=== PATIENT | male | born 1980 | race Caucasian/White ===

== ENCOUNTER 2024-08-03 17:36 | Inpatient (IN) | payer OTHER ==
[2024-08-03] MEDS ORDERED: LORazepam 0.5 MG TAB PO PRN (18:16)
[2024-08-03] MEDS ORDERED: LORazepam 1 MG TAB PO PRN ×2 (18:16)
--- NOTE | 2024-08-03 18:30 | ED ---
Alcohol HPI - General Chief Complaint: Recheck/Abnormal Lab/Rx Stated Complaint: high blood pressure abd pain Time Seen by Provider: 08/03/24 18:15 Source: patient, RN notes reviewed, old records reviewed Mode of arrival: ambulatory Limitations: no limitations - History of Present Illness Initial Comments: This is a 44-year-old male to the ER for evaluation patient presents today for evaluation of multiple complaints abdominal pain nausea vomiting decreased appetite, patient is attempting to quit drinking going through withdrawal, patient has history of severe alcoholism with multiple rehabilitation efforts. Without success. MD Complaint: alcohol withdrawal (4) Last Drink: unknown -: days(s) (4) Previous Visits for Alcohol Intoxication?: Yes Recent Trauma: Yes Associated Symptoms: nausea, abdominal pain Treatments Prior to Arrival: none Chronic Alcohol Use: Yes - Related Data Previous Rx's Medication Instructions Recorded Clotrimazole Cream [Lotrimin Cream] 1 applic TOPICAL BID 14 Days #1 08/08/24 cream Folic Acid 1 mg PO DAILY 14 Days #14 tab 08/08/24 Lactulose [Cephulac] 30 gm PO TID 14 Days #1890 ml 08/08/24 Multivitamins, Thera [Multivitamin 1 each PO DAILY 14 Days #14 tab 08/08/24 (formulary)] Thiamine [Vitamin B-1] 100 mg PO DAILY 14 Days #14 tab 08/08/24 amLODIPine [Norvasc] 10 mg PO DAILY 14 Days #14 tab 08/08/24 guaiFENesin-DM 100-10MG/5ML 10 ml PO Q6HR PRN 14 Days #560 ml 08/08/24 [Robitussin DM] Allergies Allergy/AdvReac Type Severity Reaction Status Date / Time No Known Allergies Allergy Verified 08/04/24 09:12 Review of Systems ROS Statement: Those systems with pertinent positive or pertinent negative responses have been documented in the HPI. ROS Other: All systems not noted in ROS Statement are negative. Past Medical History Past Medical History: Hypertension History of Any Multi-Drug Resistant Organisms: None Reported Past Surgical History: No Surgical Hx Reported Past Psychological History: Depression Smoking Status: Never smoker Past Alcohol Use History: Abuse, Daily Past Drug Use History: None Reported General Exam Limitations: no limitations General appearance: alert, in no apparent distress, anxious Head exam: Present: atraumatic, normocephalic, normal inspection Eye exam: Present: normal appearance, PERRL, EOMI. Absent: scleral icterus, conjunctival injection, periorbital swelling ENT exam: Present: normal exam, mucous membranes moist Neck exam: Present: normal inspection. Absent: tenderness, meningismus, lymphadenopathy Respiratory exam: Present: normal lung sounds bilaterally. Absent: respiratory distress, wheezes, rales, rhonchi, stridor Cardiovascular Exam: Present: normal rhythm, tachycardia, normal heart sounds. Absent: systolic murmur, diastolic murmur, rubs, gallop, clicks GI/Abdominal exam: Present: soft, normal bowel sounds. Absent: distended, tenderness, guarding, rebound, rigid Extremities exam: Present: normal inspection, full ROM, normal capillary refill. Absent: tenderness, pedal edema, joint swelling, calf tenderness Back exam: Present: normal inspection Neurological exam: Present: alert, oriented X3, CN II-XII intact Psychiatric exam: Present: normal affect, normal mood Skin exam: Present: warm, dry, intact, normal color. Absent: rash Course Vital Signs 08/03/24 08/03/24 08/03/24 17:37 20:00 21:00 Temperature 99.3 F 98.1 F Pulse Rate 139 H 115 H 123 H Respiratory 18 22 22 Rate Blood Pressure 148/98 180/132 165/120 O2 Sat by Pulse 94 L 96 95 Oximetry 08/03/24 08/04/24 08/04/24 22:00 00:00 02:00 Temperature Pulse Rate 110 H 111 H 109 H Respiratory 22 22 20 Rate Blood Pressure 156/106 148/105 154/104 O2 Sat by Pulse 98 96 98 Oximetry 08/04/24 08/04/24 08/04/24 04:00 06:00 07:49 Temperature 98 F Pulse Rate 105 H 105 H 109 H Respiratory 20 20 18 Rate Blood Pressure 151/101 133/99 134/93 O2 Sat by Pulse 98 100 96 Oximetry 08/04/24 08/04/24 08/04/24 11:03 12:35 14:44 Temperature 99.6 F Pulse Rate 107 H 105 H 110 H Respiratory 18 18 16 Rate Blood Pressure 160/116 162/121 156/113 O2 Sat by Pulse 95 95 98 Oximetry 08/04/24 08/04/24 08/04/24 15:21 18:13 18:27 Temperature 98.9 F 99.1 F Pulse Rate 105 H 114 H Respiratory 16 17 Rate Blood Pressure 161/110 163/118 144/95 O2 Sat by Pulse 96 96 Oximetry 08/04/24 22:50 Temperature Pulse Rate 118 H Respiratory 18 Rate Blood Pressure 151/109 O2 Sat by Pulse 97 Oximetry - Reevaluation(s) Reevaluation #1: 08/03/24 18:49 Medical records reviewed No prior ER visits on questioning patient is Kaleigh originally from [place] Reevaluation #2: 08/03/24 21:59 Patient has no real change in symptoms Reevaluation #3: 08/03/24 21:59 Patient informed of results questions answered Reevaluation #4: Was pt. sent in by a medical professional or institution (, [facility], PHARMACY ASSISTANT, urgent care, hospital, or halfway...) When possible be specific @ -no Did you speak to anyone other than the patient for history (EMS, parent, family, police, friend...)? What history was obtained from this source @ -no Did you review nursing and triage notes (agree or disagree)? Why? @ -agree Are old charts reviewed (outside hosp., previous admission, EMS record, old EKG, old radiological studies, urgent care reports/EKG's, halfway records)? Report findings @ -yes Differential Diagnosis (chest pain, altered mental status, abdominal pain women, abdominal pain men, vaginal bleeding, weakness, fever, dyspnea, syncope, headache, dizziness, GI bleed, back pain, seizure, CVA, palpatations, mental health, musculoskeletal)? @ -prior EKG interpreted by me (3pts min.). @ -yes X-rays interpreted by me (1pt min.). @ -no CT interpreted by me (1pt min.). @ -no U/S interpreted by me (1pt. min.). @ -no What testing was considered but not performed or refused? (CT, X-rays, U/S, labs)? Why? @ -none What meds were considered but not given or refused? Why? @ -none Did you discuss the management of the patient with other professionals (professionals i.e. [facility], PHARMACY ASSISTANT, lab, RT, psych nurse, social services aide, supervisor [employer], teacher, chief administrative officer, outsole caser)? Give summary @ -no Was smoking cessation discussed for >3mins.? @ -no Was critical care preformed (if so, how long)? @ -yes31 Were there social determinants of health that impacted care today? How? (Homelessness, low income, unemployed, alcoholism, drug addiction, transportation, low edu. Level, literacy, decrease access to med. care, residential, rehab)? @ -none Was there de-escalation of care discussed even if they declined (Discuss DNR or withdrawal of care, Hospice)? DNR status @ -no What co-morbidities impacted this encounter? (DM, HTN, Smoking, COPD, CAD, Cancer, CVA, ARF, Chemo, Hep., AIDS, mental health diagnosis, sleep apnea, morbid obesity)? @ -none Was patient admitted / discharged? Hospital course, mention meds given and route, prescriptions, significant lab abnormalities, going to OR and other pertinent info. @ - 44 male will be admitted for acute alcohol withdrawal complicated by multiple electrolyte derangements, low magnesium low potassium low Phos low calcium, protein calorie malnutrition severe malnutrition dehydration from alcoholic hepatitis and cirrhosis with elevated bilirubin Admitted Undiagnosed new problem with uncertain prognosis? @ -no Drug Therapy requiring intensive monitoring for toxicity (Heparin, Nitro, Insulin, Cardizem)? @ -no Were any procedures done? @ -no Diagnosis/symptom? @ -multiple electrolyte abnormalities with alcohol withdrawal Acute, or Chronic, or Acute on Chronic? @ -Acute Uncomplicated (without systemic symptoms) or Complicated (systemic symptoms)? @ -Complicated Side effects of treatment? @ -no Exacerbation, Progression, or Severe Exacerbation? @ -exacerbation Poses a threat to life or bodily function? How? (Chest pain, [place], HI, pneumonia, PE, COPD, DKA, ARF, appy, cholecystitis, CVA, Diverticulitis, Homicidal, Suicidal, threat to staff... and all critical care pts) @ -yes significant electrolyte abnormalities Reevaluation #5: Differential Abdominal Pain Men: Appendicitis, cholecystitis, diverticulosis, ischemic bowel, pancreatitis, hepatitis, UTI, gastroenteritis, AAA, incarcerated hernia, bowel obstruction, constipation, inflammatory bowel, hepatitis, peptic ulcer disease, splenic infarction, perforated viscus, testicular torsion, this is not meant to be an all-inclusive list - Consultations Consultation #1: Spoke with ASIF ferreiraay to admit this patient Medical Decision Making - Medical Decision Making 44 male will be admitted for acute alcohol withdrawal complicated by multiple electrolyte derangements, low magnesium low potassium low Phos low calcium, protein calorie malnutrition severe malnutrition dehydration from alcoholic hepatitis and cirrhosis with elevated bilirubin - Lab Data Result diagrams: 08/05/24 04:03 08/08/24 05:21 Lab Results 08/03/24 08/03/24 08/03/24 Range/Units 18:34 18:34 18:34 WBC 3.9 (3.8-10.6) k/uL RBC 4.40 (4.30-5.90) m/uL Hgb 16.2 (13.0-17.5) gm/dL Hct 49.3 (39.0-53.0) % MCV 112.0 H (80.0-100.0) fL MCH 36.7 H (25.0-35.0) pg MCHC 32.7 (31.0-37.0) g/dL RDW 13.5 (11.5-15.5) % Plt Count 71 L (150-450) k/uL MPV 9.9 Neutrophils % 70 % Lymphocytes % 16 % Monocytes % 10 % Eosinophils % 0 % Basophils % 1 % Neutrophils # 2.7 (1.3-7.7) k/uL Lymphocytes # 0.6 L (1.0-4.8) k/uL Monocytes # 0.4 (0-1.0) k/uL Eosinophils # 0.0 (0-0.7) k/uL Basophils # 0.0 (0-0.2) k/uL Manual Slide Review Performed Macrocytosis Marked A Target Cells Present Stomatocytes Present PT 18.9 H (10.0-12.5) sec INR 1.9 H (<1.2) APTT 25.6 (22.0-30.0) sec D-Dimer 1.10 H (<0.60) mg/L FEU Sodium 134 L (137-145) mmol/L Potassium 2.8 L (3.5-5.1) mmol/L Chloride 91 L (98-107) mmol/L Carbon Dioxide 29 (22-30) mmol/L Anion Gap 14 mmol/L BUN 5 L (9-20) mg/dL Creatinine 0.68 (0.66-1.25) mg/dL Est GFR (CKD-EPI)AfAm >90 (>60 ml/min/1.73 sqM) Est GFR (CKD-EPI)NonAf >90 (>60 ml/min/1.73 sqM) Glucose 111 H (74-99) mg/dL Lactic Ac Sepsis Rflx Plasma Lactic Acid Elias (0.7-2.0) mmol/L Calcium 8.1 L (8.4-10.2) mg/dL Phosphorus 2.0 L (2.5-4.5) mg/dL Magnesium 0.6 L* (1.6-2.3) mg/dL Total Bilirubin 12.6 H (0.2-1.3) mg/dL AST 426 H (17-59) U/L ALT 96 H (4-49) U/L Alkaline Phosphatase 151 H (38-126) U/L Troponin I (0.000-0.034) ng/mL NT-Pro-B Natriuret Pep 44 pg/mL Total Protein 8.3 H (6.3-8.2) g/dL Albumin 3.9 (3.5-5.0) g/dL Lipase 230 (23-300) U/L Urine Color Urine Appearance (Clear) Urine pH (5.0-8.0) Ur Specific [place] (1.001-1.035) Urine Protein (Negative) Urine Glucose (UA) (Negative) Urine Ketones (Negative) Urine Blood (Negative) Urine Nitrite (Negative) Urine Bilirubin (Negative) Urine Urobilinogen (<2.0) mg/dL Ur Leukocyte Esterase (Negative) Urine RBC (0-5) /hpf Urine WBC (0-5) /hpf Ur Squamous Epith Cells (0-4) /hpf Hyaline Casts (0-2) /lpf Urine Mucus (None) /hpf Serum Alcohol <10 mg/dL 08/03/24 08/03/24 08/03/24 Range/Units 18:34 18:34 19:14 WBC (3.8-10.6) k/uL RBC (4.30-5.90) m/uL Hgb (13.0-17.5) gm/dL Hct (39.0-53.0) % MCV (80.0-100.0) fL MCH (25.0-35.0) pg MCHC (31.0-37.0) g/dL RDW (11.5-15.5) % Plt Count (150-450) k/uL MPV Neutrophils % % Lymphocytes % % Monocytes % % Eosinophils % % Basophils % % Neutrophils # (1.3-7.7) k/uL Lymphocytes # (1.0-4.8) k/uL Monocytes # (0-1.0) k/uL Eosinophils # (0-0.7) k/uL Basophils # (0-0.2) k/uL Manual Slide Review Macrocytosis Target Cells Stomatocytes PT (10.0-12.5) sec INR (<1.2) APTT (22.0-30.0) sec D-Dimer (<0.60) mg/L FEU Sodium (137-145) mmol/L Potassium (3.5-5.1) mmol/L Chloride (98-107) mmol/L Carbon Dioxide (22-30) mmol/L Anion Gap mmol/L BUN (9-20) mg/dL Creatinine (0.66-1.25) mg/dL Est GFR (CKD-EPI)AfAm (>60 ml/min/1.73 sqM) Est GFR (CKD-EPI)NonAf (>60 ml/min/1.73 sqM) Glucose (74-99) mg/dL Lactic Ac Sepsis Rflx Y Plasma Lactic Acid Elias 2.1 H* (0.7-2.0) mmol/L Calcium (8.4-10.2) mg/dL Phosphorus (2.5-4.5) mg/dL Magnesium (1.6-2.3) mg/dL Total Bilirubin (0.2-1.3) mg/dL AST (17-59) U/L ALT (4-49) U/L Alkaline Phosphatase (38-126) U/L Troponin I <0.012 (0.000-0.034) ng/mL NT-Pro-B Natriuret Pep pg/mL Total Protein (6.3-8.2) g/dL Albumin (3.5-5.0) g/dL Lipase (23-300) U/L Urine Color Urine Appearance (Clear) Urine pH (5.0-8.0) Ur Specific [place] (1.001-1.035) Urine Protein (Negative) Urine Glucose (UA) (Negative) Urine Ketones (Negative) Urine Blood (Negative) Urine Nitrite (Negative) Urine Bilirubin (Negative) Urine Urobilinogen (<2.0) mg/dL Ur Leukocyte Esterase (Negative) Urine RBC (0-5) /hpf Urine WBC (0-5) /hpf Ur Squamous Epith Cells (0-4) /hpf Hyaline Casts (0-2) /lpf Urine Mucus (None) /hpf Serum Alcohol mg/dL 08/03/24 08/03/24 Range/Units 19:59 21:29 WBC (3.8-10.6) k/uL RBC (4.30-5.90) m/uL Hgb (13.0-17.5) gm/dL Hct (39.0-53.0) % MCV (80.0-100.0) fL MCH (25.0-35.0) pg MCHC (31.0-37.0) g/dL RDW (11.5-15.5) % Plt Count (150-450) k/uL MPV Neutrophils % % Lymphocytes % % Monocytes % % Eosinophils % % Basophils % % Neutrophils # (1.3-7.7) k/uL Lymphocytes # (1.0-4.8) k/uL Monocytes # (0-1.0) k/uL Eosinophils # (0-0.7) k/uL Basophils # (0-0.2) k/uL Manual Slide Review Macrocytosis Target Cells Stomatocytes PT (10.0-12.5) sec INR (<1.2) APTT (22.0-30.0) sec D-Dimer (<0.60) mg/L FEU Sodium (137-145) mmol/L Potassium (3.5-5.1) mmol/L Chloride (98-107) mmol/L Carbon Dioxide (22-30) mmol/L Anion Gap mmol/L BUN (9-20) mg/dL Creatinine (0.66-1.25) mg/dL Est GFR (CKD-EPI)AfAm (>60 ml/min/1.73 sqM) Est GFR (CKD-EPI)NonAf (>60 ml/min/1.73 sqM) Glucose (74-99) mg/dL Lactic Ac Sepsis Rflx Plasma Lactic Acid Elias 1.4 (0.7-2.0) mmol/L Calcium (8.4-10.2) mg/dL Phosphorus (2.5-4.5) mg/dL Magnesium (1.6-2.3) mg/dL Total Bilirubin (0.2-1.3) mg/dL AST (17-59) U/L ALT (4-49) U/L Alkaline Phosphatase (38-126) U/L Troponin I (0.000-0.034) ng/mL NT-Pro-B Natriuret Pep pg/mL Total Protein (6.3-8.2) g/dL Albumin (3.5-5.0) g/dL Lipase (23-300) U/L Urine Color [place] Urine Appearance Clear (Clear) Urine pH 8.0 (5.0-8.0) Ur Specific [place] 1.012 (1.001-1.035) Urine Protein 2+ H (Negative) Urine Glucose (UA) Negative (Negative) Urine Ketones 1+ H (Negative) Urine Blood Trace H (Negative) Urine Nitrite Negative (Negative) Urine Bilirubin 3+ H (Negative) Urine Urobilinogen 2.0 (<2.0) mg/dL Ur Leukocyte Esterase Negative (Negative) Urine RBC 3 (0-5) /hpf Urine WBC 7 H (0-5) /hpf Ur Squamous Epith Cells <1 (0-4) /hpf Hyaline Casts 14 H (0-2) /lpf Urine Mucus Moderate H (None) /hpf Serum Alcohol mg/dL - EKG Data -: EKG Interpreted by Me (EKG is sinus tachycardia 135 CA 139 QRS 93 QTc 410) - Radiology Data Radiology results: report reviewed (CT angio chest abdomen pelvis negative for acute disease), image reviewed Critical Care Time Critical Care Time: Yes Total Critical Care Time: 31 Disposition Clinical Impression: Alcohol withdrawal, Acute alcoholic hepatitis, Hyperbilirubinemia, Hypomagnesemia, Hypokalemia Disposition: ADMITTED IP TO THIS HOSP Condition: Stable Is patient prescribed a controlled substance at d/c from ED?: No Time of Disposition: 21:20
[2024-08-03] MEDS: LORazepam 2 MG/ML INJ IV STA (18:33)
[2024-08-03] MEDS: ONDANSETRON 4 MG/2 ML VIAL IVP STA (18:37)
[2024-08-03] MEDS: PANTOPRAZOLE 40 MG/10 ML VIAL IVP STA (18:40)
[2024-08-03] MEDS: SODIUM CHLORIDE 0.9% 500 ML 500 ML IV STA (18:41)
[2024-08-03] MEDS: SODIUM CHLORIDE 0.9% 1,000 ML IV STA ×2 (18:41)
[2024-08-03 18:45] LABS: Basophils % (A) 1 %; Eosinophils % (A) 0 %; HCT 49.3 % (39.0-53.0); HGB 16.2 gm/dL (13.0-17.5); Lymphocytes # (A) 0.6 k/uL (1.0-4.8); Lymphocytes % (A) 16 %; MCH 36.7 pg (25.0-35.0); MCHC 32.7 g/dL (31.0-37.0); Macrocytosis Marked; Mean Platelet Volume 9.9; Monocytes # (A) 0.4 k/uL (0-1.0); Monocytes % (A) 10 %; Neutrophils # (A) 2.7 k/uL (1.3-7.7); Neutrophils % (A) 70 %; RDW 13.5 % (11.5-15.5); WBC 3.9 k/uL (3.8-10.6)
[2024-08-03 18:58] LABS: ALT 96 U/L (4-49); AST 426 U/L (17-59); African American GFR (CKD) >90 (>60 ml/min/1.73 sqM); Albumin 3.9 g/dL (3.5-5.0); Alcohol <10 mg/dL; Alkaline Phosphatase 151 U/L (38-126); Anion Gap 14 mmol/L; Blood Urea Nitrogen 5 mg/dL (9-20); Calcium 8.1 mg/dL (8.4-10.2); Carbon Dioxide 29 mmol/L (22-30); Chloride 91 mmol/L (98-107); Glucose 111 mg/dL (74-99); Lipase 230 U/L (23-300); Non-African American GFR(CKD) >90 (>60 ml/min/1.73 sqM); Potassium 2.8 mmol/L (3.5-5.1); Sodium 134 mmol/L (137-145); Total Bilirubin 12.6 mg/dL (0.2-1.3); Total Protein 8.3 g/dL (6.3-8.2)
[2024-08-03 19:06] LABS: NT-Pro-B-Type Natriuretic Pept 44 pg/mL
[2024-08-03 19:07] LABS: INR 1.9 (<1.2); Partial Thromboplastin Time 25.6 sec (22.0-30.0); Prothrombin Time 18.9 sec (10.0-12.5)
[2024-08-03 19:13] LABS: Magnesium 0.6 mg/dL (1.6-2.3)
[2024-08-03 19:23] LABS: Stomatocytes Present; Target Cells Present
[2024-08-03 19:25] LABS: Platelet Count 71 k/uL (150-450)
--- NOTE | 2024-08-03 20:18 | CT ---
EXAMINATION TYPE: CT angio chest DATE OF EXAM: 08/03/2024 8:10 PM COMPARISON: None. CLINICAL INDICATION: Male, 44 years old with history of pain; Tachycardia, cough and congestion TECHNIQUE/CONTRAST: CTA scan of the thorax is performed with IV Contrast, patient injected with 100 mL of Isovue 370, MIP images are created and reviewed these are created on a separate workstation.. CT DLP: Combined 2007.5 mGycm, Automated exposure control for dose reduction was used. FINDINGS: Pulmonary Artery: There is no evidence for a filling defect within the pulmonary vasculature to sugge st acute pulmonary embolism. The pulmonary artery is of normal size. Lungs/Pleura: No evidence of focal consolidation, pleural effusion or pneumothorax. Airway: Large airways are patent. Heart: Heart is within normal limits for size. Coronary artery calcifications. Vasculature: No evidence of aortic aneurysm. Mediastinum: No gross evidence of adenopathy. Musculoskeletal: No acute osseous abnormalities Soft Tissues/lymph nodes: Unremarkable. Lower neck: No significant findings. Upper Abdomen: No significant acute findings. Severe hepatic steatosis. Gallbladder wall thickening/e kevin and mild pericholecystic fluid partially visualized. IMPRESSION: No evidence of acute pulmonary embolism or acute pulmonary pathology. [facility], , 08/03/2024 8:15 PM
--- NOTE | 2024-08-03 20:22 | CT ---
EXAMINATION TYPE: CT abdomen pelvis w con DATE OF EXAM: 08/03/2024 8:14 PM COMPARISON: CT abdomen pelvis most recent from CLINICAL INDICATION: Male, 44 years old with history of pain; Tachycardia, Fatigue, Daily Alcohol dri nker- last drink x 3 days ago TECHNIQUE: Axial CT abdomen pelvis w con;Sagittal and coronal reformats were created on a separate w orkstation. Contrast used:100 mL of Isovue 370 with IV Contrast, (none if empty) Oral contrast used: without Oral Contrast (none if empty) CT DLP: combined 2007.5 mGycm, Automated exposure control for dose reduction was used. FINDINGS: LOWER CHEST: Unremarkable ABDOMEN LIVER: Severe hepatic steatosis. GALLBLADDER AND BILE DUCTS: Nonspecific abnormal thickening/edema and adjacent pericholecystic fluid. PANCREAS: Unremarkable. SPLEEN: Unremarkable. ADRENAL GLANDS: Unremarkable. KIDNEYS AND URETERS: No evidence of hydronephrosis or renal calculus. The ureters are unremarkable. PELVIS BLADDER: No evidence for wall thickening or mass given limitations of exam. REPRODUCTIVE: Unremarkable. ABDOMEN & PELVIS STOMACH AND BOWEL: Stomach and duodenum are unremarkable. No evidence of bowel obstruction. Nonspecif ic mild wall thickening of the cecum and ascending colon, consider correlation with colonoscopy when clinically indicated. PERITONEUM/RETROPERITONEUM: No evidence of pneumoperitoneum or free fluid. VASCULATURE: No evidence of aortic aneurysm. MUSCULOSKELETAL: No acute osseous abnormalities LYMPH NODES: No gross evidence for lymphadenopathy. SOFT TISSUE/ABDOMINAL WALL: Small fat-containing right inguinal hernia. IMPRESSION: 1. Gallbladder wall thickening/edema and mild pericholecystic fluid without CT evidence of cholelith iasis. Consider further evaluation with right upper quadrant ultrasound and/or nuclear medicine HIDA scan if there is underlying concern for acute cholecystitis. 2. Severe hepatic steatosis. [facility], , 08/03/2024 8:20 PM
[2024-08-03 20:32] LABS: Appearance,Urine Clear (Clear); Bilirubin,Urine 3+ (Negative); Blood,Urine Trace (Negative); Color,Urine Orange; Glucose,Urine (UA) Negative (Negative); Hyaline Casts,Urine 14 /lpf (0-2); Ketones,Urine 1+ (Negative); Leukocyte Esterase,Urine Negative (Negative); Mucus,Urine Moderate /hpf; Nitrite,Urine Negative (Negative); Protein,Urine 2+ (Negative); RBC,Urine 3 /hpf (0-5); Specific Gravity,Urine 1.012 (1.001-1.035); Squamous Epithelial Cell,Urine <1 /hpf (0-4); WBC,Urine 7 /hpf (0-5)
[2024-08-03] MEDS: cloNIDine 0.3 MG/24HR PATCH TRANSDERM STA (20:52)
[2024-08-03] MEDS: POTASSIUM BICARBONATE/CIT AC 20 MEQ TABLET.EFF PO STA ×2 (20:54→20:55)
[2024-08-03] MEDS: MAGNESIUM OXIDE 400 MG TAB PO STA ×2 (20:54)
[2024-08-03] MEDS: MAGNESIUM SULFATE-D5W PMX 1 GM in DEXTROSE/WATER 1 100ML.BAG IVPB ONE (20:54)
[2024-08-03] MEDS ORDERED: NALOXONE 0.4 MG/ML 1 ML VIAL IV PRN (21:56)
[2024-08-03] MEDS ORDERED: ONDANSETRON 4 MG/2 ML VIAL IVP PRN (21:56)
[2024-08-03] MEDS ORDERED: MORPHINE SULFATE 4 MG/ML SYRINGE IV PRN (21:56)
[2024-08-03] MEDS: SODIUM CHLORIDE 0.9% 1,000 ML IV SCH (22:44)
[2024-08-04 09:14] LABS: Basophils % (A) 1 %; Eosinophils % (A) 1 %; HCT 45.3 % (39.0-53.0); HGB 14.2 gm/dL (13.0-17.5); Lymphocytes # (A) 0.8 k/uL (1.0-4.8); Lymphocytes % (A) 24 %; MCH 36.1 pg (25.0-35.0); MCHC 31.4 g/dL (31.0-37.0); MCV 114.7 fL (80.0-100.0); Macrocytosis Marked; Mean Platelet Volume 10.7; Monocytes # (A) 0.4 k/uL (0-1.0); Monocytes % (A) 11 %; RBC 3.95 m/uL (4.30-5.90); RDW 13.6 % (11.5-15.5); WBC 3.5 k/uL (3.8-10.6)
[2024-08-04] MEDS ORDERED: Potassium Replacement Protocol 1 EACH MISC MISCELLANE PRN (09:29)
[2024-08-04] MEDS ORDERED: Magnesium Replacement Protocol 1 EACH MISC MISCELLANE PRN (09:29)
[2024-08-04 09:38] LABS: ALT 73 U/L (4-49); AST 313 U/L (17-59); African American GFR (CKD) >90 (>60 ml/min/1.73 sqM); Albumin 3.2 g/dL (3.5-5.0); Alkaline Phosphatase 121 U/L (38-126); Anion Gap 9 mmol/L; Blood Urea Nitrogen 4 mg/dL (9-20); Calcium 7.2 mg/dL (8.4-10.2); Carbon Dioxide 27 mmol/L (22-30); Chloride 98 mmol/L (98-107); Glucose 99 mg/dL (74-99); Lipase 318 U/L (23-300); Non-African American GFR(CKD) >90 (>60 ml/min/1.73 sqM); Phosphorus 2.1 mg/dL (2.5-4.5); Potassium 3.3 mmol/L (3.5-5.1); Sodium 134 mmol/L (137-145); Total Protein 7.1 g/dL (6.3-8.2)
[2024-08-04 10:56] LABS: Platelet Count 68 k/uL (150-450)
[2024-08-04] MEDS: PANTOPRAZOLE 40 MG/10 ML VIAL IV SCH (10:59)
--- NOTE | 2024-08-04 12:45 | P.CONS ---
History of Present Illness - Reason for Consult Consult date: 08/04/24 Liver Requesting physician: Adis Jean - Chief Complaint Withdrawal symptoms - History of Present Illness This a pleasant 44-year-old male with a long history of alcoholism who had presented to the emergency department with multiple complaints including abdominal pain, nausea and vomiting and going through withdrawal symptoms. Patient states he went on a drinking dia recently secondary to stress. He has been a 14-year alcoholic and has gone through rehab as well as withdrawal multiple times. Average he drinks a pint to 1/5 a day states his last time he drank was about 5 days ago. He is in the [place] area visiting his parents and secondary to his symptoms came into the hospital for evaluation. Patient started on CIWA protocol. States that he does have a history of fatty liver disease which she thinks is likely secondary to drinking. No significant past medical history other than hypertension. He had a CT of the abdomen pelvis reporting severe hepatic steatosis and gastroenterology was consulted for further evaluation. Patient states he has noted that he has been jaundice and urine has been dark for last couple weeks. States last year he was jaundice as well and liver enzymes were elevated he went into rehab for a month and symptoms did improve. He does not follow with a community planner, lives in [place]. Admitting labs WBC 3.9 hemoglobin 16.2 hematocrit 49 platelet count 71,000 INR 1.9 D-dimer 1.1 sodium 134 potassium 2.8 BUN 5 creatinine 0.6 lactic acid 2.1 magnesium 0.6 total bilirubin 12.6 AST 426 ALT 96 alkaline phosphatase 151 lipase 230 serum alcohol less than 10 Today's labs WBC 3.5 hemoglobin 14.2 platelet count 68,000 sodium 134 potassium 3.3 BUN 4 creatinine 0.6 magnesium 1.0 total bilirubin 13.0 AST 313 ALT 73 alkaline phosphatase 121 lipase 318 Review of Systems REVIEW OF SYSTEMS: CARDIOPULMONARY: No chest pain or shortness of breath. Gastrointestinal: Abdominal pain. No nausea or vomiting. No hematemesis, coffee-ground emesis. No rectal bleeding, or melena. GENITOURINARY: No dysuria or hematuria. MUSCULOSKELETAL: Reports normal range of motion. SKIN: No rashes. No jaundice. ENDOCRINE: No chills, fevers. No excessive weight gain or loss. No polydipsia or polyuria. PSYCHIATRIC: Unremarkable. NEUROLOGY: No change in mental status. Denies dizziness, headache. ENT: Vision unremarkable. CONSTITUTIONAL: No recent weight loss. No fever, chills, night sweats. Past Medical History Past Medical History: Hypertension History of Any Multi-Drug Resistant Organisms: None Reported Past Surgical History: No Surgical Hx Reported Past Psychological History: Depression Smoking Status: Never smoker Past Alcohol Use History: Abuse, Daily Past Drug Use History: None Reported Medications and Allergies Home Medications Medication Instructions Recorded Confirmed Type cloNIDine HCL [Catapres] 0.2 mg PO HS 08/04/24 08/04/24 History Allergies Allergy/AdvReac Type Severity Reaction Status Date / Time No Known Allergies Allergy Verified 08/04/24 09:12 Physical Exam Vitals: Vital Signs Temp Pulse Resp BP Pulse Ox 08/04/24 07:49 109 H 18 134/93 96 08/04/24 06:00 98 F 105 H 20 133/99 100 08/04/24 04:00 105 H 20 151/101 98 08/04/24 02:00 109 H 20 154/104 98 08/04/24 00:00 111 H 22 148/105 96 08/03/24 22:00 110 H 22 156/106 98 08/03/24 21:00 123 H 22 165/120 95 08/03/24 20:00 98.1 F 115 H 22 180/132 96 08/03/24 17:37 99.3 F 139 H 18 148/98 94 L Intake and Output 08/03/24 08/04/24 08/04/24 22:59 06:59 14:59 Other: Weight 99.79 kg General appearance: The patient is alert, oriented, appears in no acute distress. HET: Head is normocephalic and atraumatic. Conjunctiva pink. Sclera icteric. Neck: Supple without lymphadenopathy. Trachea midline. Heart: Regular. Lungs: Equal expansion, normal respiratory effort. Abdomen: Soft, right upper quadrant tenderness, nondistended. Skin: No rashes. Jaundice. Extremities: Normal skin color and turgor. No pedal edema. Neurological: No focal deficits. Alert and oriented x3. Results CBC & Chem 7: 08/04/24 08:57 08/04/24 08:57 Labs: Abnormal Lab Results - Last 24 Hours (Table) 08/03/24 08/03/24 08/03/24 Range/Units 18:34 18:34 18:34 MCV 112.0 H (80.0-100.0) fL MCH 36.7 H (25.0-35.0) pg Plt Count 71 L (150-450) k/uL Lymphocytes # 0.6 L (1.0-4.8) k/uL Macrocytosis Marked A PT 18.9 H (10.0-12.5) sec INR 1.9 H (<1.2) D-Dimer 1.10 H (<0.60) mg/L FEU Sodium 134 L (137-145) mmol/L Potassium 2.8 L (3.5-5.1) mmol/L Chloride 91 L (98-107) mmol/L BUN 5 L (9-20) mg/dL Glucose 111 H (74-99) mg/dL Plasma Lactic Acid Elias (0.7-2.0) mmol/L Calcium 8.1 L (8.4-10.2) mg/dL Phosphorus 2.0 L (2.5-4.5) mg/dL Magnesium 0.6 L* (1.6-2.3) mg/dL Total Bilirubin 12.6 H (0.2-1.3) mg/dL AST 426 H (17-59) U/L ALT 96 H (4-49) U/L Alkaline Phosphatase 151 H (38-126) U/L Total Protein 8.3 H (6.3-8.2) g/dL Urine Protein (Negative) Urine Ketones (Negative) Urine Blood (Negative) Urine Bilirubin (Negative) Urine WBC (0-5) /hpf Hyaline Casts (0-2) /lpf Urine Mucus (None) /hpf 08/03/24 08/03/24 Range/Units 18:34 19:59 MCV (80.0-100.0) fL MCH (25.0-35.0) pg Plt Count (150-450) k/uL Lymphocytes # (1.0-4.8) k/uL Macrocytosis PT (10.0-12.5) sec INR (<1.2) D-Dimer (<0.60) mg/L FEU Sodium (137-145) mmol/L Potassium (3.5-5.1) mmol/L Chloride (98-107) mmol/L BUN (9-20) mg/dL Glucose (74-99) mg/dL Plasma Lactic Acid Elias 2.1 H* (0.7-2.0) mmol/L Calcium (8.4-10.2) mg/dL Phosphorus (2.5-4.5) mg/dL Magnesium (1.6-2.3) mg/dL Total Bilirubin (0.2-1.3) mg/dL AST (17-59) U/L ALT (4-49) U/L Alkaline Phosphatase (38-126) U/L Total Protein (6.3-8.2) g/dL Urine Protein 2+ H (Negative) Urine Ketones 1+ H (Negative) Urine Blood Trace H (Negative) Urine Bilirubin 3+ H (Negative) Urine WBC 7 H (0-5) /hpf Hyaline Casts 14 H (0-2) /lpf Urine Mucus Moderate H (None) /hpf Comments: CT abdomen and pelvis with contrast reports gallbladder wall thickening/edema and mild pericholecystic fluid without CT evidence of cholelithiasis. Consider further evaluation with right upper quadrant ultrasound and/or nuclear medicine HIDA scan if there is underlying concern for acute cholecystitis. Severe hepatic steatosis. Chest CT angiogram without evidence for pulmonary embolism Assessment and Plan (1) Acute alcoholic hepatitis Narrative/Plan: 44-year-old male with 14-year history of alcoholism presenting after binge drinking with significantly elevated LFTs and bilirubin likely secondary to acute alcohol hepatitis. CT evidence of severe hepatic steatosis likely secondary to alcohol liver disease. Recommend alcohol abstinence, continue to monitor LFTs. Avoid hepatotoxic medications. And will need follow-up with gastroenterology on discharge in [place]. This all discussed with patient. Current Visit: Yes Status: Acute Code(s): K70.10 - ALCOHOLIC HEPATITIS WITHOUT ASCITES SNOMED Code(s): 6463848 (2) Liver disease Current Visit: Yes Status: Acute Code(s): K76.9 - LIVER DISEASE, UNSPECIFIED SNOMED Code(s): 435844911 (3) Alcohol withdrawal Narrative/Plan: Continue to monitor for withdrawal symptoms, CIWA protocol Current Visit: Yes Status: Acute Code(s): F10.939 - ALCOHOL USE, UNSPECIFIED WITH WITHDRAWAL, UNSPECIFIED SNOMED Code(s): 580424210 (4) Hyperbilirubinemia Current Visit: Yes Status: Acute Code(s): E80.6 - OTHER DISORDERS OF BILIRUBIN METABOLISM SNOMED Code(s): 41926939 (5) Hypokalemia Narrative/Plan: Replace per protocol Current Visit: Yes Status: Acute Code(s): E87.6 - HYPOKALEMIA SNOMED Code(s): 21763163 (6) Hypomagnesemia Narrative/Plan: Replace per protocol Current Visit: Yes Status: Acute Code(s): E83.42 - HYPOMAGNESEMIA SNOMED Code(s): 433274376 Plan: 1. Continue symptomatic and supportive care 2. Diet as tolerated 3. Monitor for withdrawal symptoms and continue CIWA protocol 4. Daily CBC, CMP 5. Replace electrolytes per protocol 6. Recommend complete alcohol abstinence 7. Protonix 40 mg daily for GI prophylaxis 8. Recommend outpatient follow-up with gastroenterology, patient from [place] and will need to establish a community planner in that area. He verbalizes understanding Thank you for this consultation, we will continue to follow. Dr. June Marcano I agree with the dictator's note, documented as a scribe by Katy Crooks.
--- NOTE | 2024-08-04 14:24 | P.HPIM ---
History of Present Illness H&P Date: 08/04/24 Chief Complaint: Abdominal pain Patient is a 44 year old male with past medical history of hypertension who presented to the ED with chief complaint of abdominal pain. He started drinking alcohol one and a half weeks earlier. Following which he started endorsing right upper quadrant abdominal pain along with nausea. He admits to dry heaves but denies vomiting. He admits to drinking a fifth a day. He states having alcohol withdrawals in the past, but the abdominal pain he has currently is much lower than what he has experienced in the past. He denies alcohol withdrawal seizures. Associated with that he has a productive cough that started 2 weeks ago. He also complains of labored breathing. He went to urgent care and tested negative for Flu and Covid. He denies having COPD or CHF. Additionally he reports a rash on his right lower extremity that started in the popliteal fossa as a ringworm but is now extended to the entire right lower leg. He denies itching/pain /discharge. Denies fever, chills, shortness of breath, chest pain, palpitations, hematuria, dysuria, hematochezia, melena, headache, slurred speech, numbness, tingling, dizziness, lightheadedness, blurred vision, double vision. ED documentation reviewed. In the ED patient was treated with diazepam, magnesium oxide,, magnesium sulfate, ondansetron, pantoprazole, potassium bicarbonate, 0.9 normal saline, clonidine. Vitals on admission T 98.3 F, IL 139 bpm, RR 18, BP 148/98, oxygen saturation 9 4% on room air EKG independently interpreted as sinus tachycardia, rate 135 bpm, QTc 4 1 0 ms CTA shows no evidence of acute pulmonary embolism or acute pulmonary pathology CT abdomen pelvis shows gallbladder wall thickening/edema and mild pericholecystic fluid without CT evidence of cholelithiasis, severe hepatic steatosis Labs on admission show WBC 3.9, hemoglobin 16.2, platelet count 71, mild macrocytosis, PT 18.9, INR 1.9, D-dimer 1.10, sodium 134, potassium 2.8, anion gap 14, BUN 5, creatinine 0.68, lactic acid 2.1, magnesium 1.6, phosphorus 2, total bilirubin 12.6, AST 426, ALT 96, alkaline phosphatase 151, troponin I <0.012, NT-proBNP 44, lipase 230, serum alcohol < 10 UA shows 2+ protein, 1+ ketones, trace blood, 3+ bilirubin, 7 WBC, 14 hyaline casts, moderate mucus Review of systems: Pertinent positives and negatives as discussed in HPI, a complete review of systems was performed and all other systems are negative. Social history: Tobacco: Never smoker Alcohol: Daily alcohol abuse Recreational drugs: Denies use Travel: No recent travel history Sick contacts: None Physical examination: Vital signs reviewed General: nontoxic, no distress, appears at stated age Derm: warm, dry, intact Head: atraumatic, normocephalic, symmetric Eyes: EOMI, anicteric sclera Mouth: no lip lesion, mucus membranes moist Cardiovascular: S1 S2 reg, no murmur Lungs: CTA bilateral, no rhonchi, no rales, no accessory muscle use Abdominal: soft, tender to palpation in right upper quadrant Extremities: rash on the right lower extremity; well demarcated, reddened borders with clear center in the popliteal fossa; excoriation on right lower leg; No pedal edema Neuro: Alert, Oriented, Gross neurological examination did not reveal any focal deficits. Psych: well appearing, appropriate affect Assessment/Plan: Patient is a 44 year old male with past medical history of hypertension who pres ented to the ED with chief complaint of abdominal pain. Active: #. Severe hepatic steatosis #. Alcohol withdrawal #. Right upper quadrant pain CT abdomen pelvis shows gallbladder wall thickening/edema and mild pericholecystic fluid without CT evidence of cholelithiasis, severe hepatic steatosis Total bilirubin 12.6, AST 426, ALT 96 Continue Lorazepam 2 mg p.o. every 3 hours as needed for CIWA 8-9, lorazepam 2 mg p.o. every 2 hours as needed for CIWA 10 or greater, lorazepam 1 mg p.o. every 4 hours as needed for CIWA 6-7, lorazepam 0.5 mg p.o. every 4 hours as needed for CIWA 4-5 Started on Librium 25 mg PO TID Started on thiamine 100 mg p.o. daily Started on folic acid 1 mg p.o. daily Obtain abdomen ultrasound Assess CIWA scale Recommend complete alcohol abstinence GI consulted, recommend outpatient follow up #. Hyopnatremia Na 134 on admission Patient received 1000ml and 500 ml bolus of 0.9 normal saline Continue 0.9 normal saline at 130 ml/hr Monitor BMP #. Hypokalemia K 2.8 on admission Patient received potassium bicarbonate 40 meq x2 in the ED Monitor BMP #. Hypomagnesemia Magnesium 1.6 on admission Patient received Magnesium oxide 400 mg x2 and Magnesium sulphate 1gm IVPB once in the ED Magnesium sulphate 4 gm IVPB Q1H ordered Monitor Magnesium level #. Right lower extremity rash, likely fungal Clotrimazole cream application topical BID Consult ID #. Thrombocytopenia, likely related to alcoholic liver disease Platelet count 71 on admission Monitor CBC #. Elevated D-dimer CTA shows no evidence of acute pulmonary embolism or acute pulmonary pathology #. Hypertension Patient received Clonidine patch 0.3 mg transdermal patch in the ED Started on Amlodipine 5 mg PO daily #. Lactic acidosis, resolved Lactic acid 2.1 on admission Trended down to 1.4 F: 0.9 normal saline at 130 ml/hr E: Replete potassium, sodium, magnesium N: Regular diet DVT prophylaxis: SCD GI prophylaxis: Pantoprazole 40 mg IV daily The patient is admitted with an anticipated more than 2 midnight stay for evaluation of abdominal pain CODE STATUS: FULL CODE Discussed with: Patient Anticipated discharge place: Home Attestation: I have personally seen and examined the patient with Resident, reviewed the documentation and participated and agree with the assessment and plan as written. Lasha Norton MD Past Medical History Past Medical History: Hypertension History of Any Multi-Drug Resistant Organisms: None Reported Past Surgical History: No Surgical Hx Reported Past Psychological History: Depression Smoking Status: Never smoker Past Alcohol Use History: Abuse, Daily Past Drug Use History: None Reported Medications and Allergies Home Medications Medication Instructions Recorded Confirmed Type cloNIDine HCL [Catapres] 0.2 mg PO HS 08/04/24 08/04/24 History Allergies Allergy/AdvReac Type Severity Reaction Status Date / Time No Known Allergies Allergy Verified 08/04/24 09:12 Physical Exam Vitals: Vital Signs Temp Pulse Resp BP Pulse Ox 08/04/24 11:03 107 H 18 160/116 95 08/04/24 07:49 109 H 18 134/93 96 08/04/24 06:00 98 F 105 H 20 133/99 100 08/04/24 04:00 105 H 20 151/101 98 08/04/24 02:00 109 H 20 154/104 98 08/04/24 00:00 111 H 22 148/105 96 08/03/24 22:00 110 H 22 156/106 98 08/03/24 21:00 123 H 22 165/120 95 08/03/24 20:00 98.1 F 115 H 22 180/132 96 08/03/24 17:37 99.3 F 139 H 18 148/98 94 L Intake and Output 08/03/24 08/04/24 08/04/24 22:59 06:59 14:59 Other: Weight 99.79 kg Results CBC & Chem 7: 08/05/24 04:03 08/05/24 08:27 Labs: Abnormal Lab Results - Last 24 Hours (Table) 08/03/24 08/03/24 08/03/24 Range/Units 18:34 18:34 18:34 WBC (3.8-10.6) k/uL RBC (4.30-5.90) m/uL MCV 112.0 H (80.0-100.0) fL MCH 36.7 H (25.0-35.0) pg Plt Count 71 L (150-450) k/uL Lymphocytes # 0.6 L (1.0-4.8) k/uL Macrocytosis Marked A PT 18.9 H (10.0-12.5) sec INR 1.9 H (<1.2) D-Dimer 1.10 H (<0.60) mg/L FEU Sodium 134 L (137-145) mmol/L Potassium 2.8 L (3.5-5.1) mmol/L Chloride 91 L (98-107) mmol/L BUN 5 L (9-20) mg/dL Creatinine (0.66-1.25) mg/dL Glucose 111 H (74-99) mg/dL Plasma Lactic Acid Elias (0.7-2.0) mmol/L Calcium 8.1 L (8.4-10.2) mg/dL Phosphorus 2.0 L (2.5-4.5) mg/dL Magnesium 0.6 L* (1.6-2.3) mg/dL Total Bilirubin 12.6 H (0.2-1.3) mg/dL AST 426 H (17-59) U/L ALT 96 H (4-49) U/L Alkaline Phosphatase 151 H (38-126) U/L Total Protein 8.3 H (6.3-8.2) g/dL Albumin (3.5-5.0) g/dL Lipase (23-300) U/L Urine Protein (Negative) Urine Ketones (Negative) Urine Blood (Negative) Urine Bilirubin (Negative) Urine WBC (0-5) /hpf Hyaline Casts (0-2) /lpf Urine Mucus (None) /hpf 08/03/24 08/03/24 08/04/24 Range/Units 18:34 19:59 08:57 WBC 3.5 L (3.8-10.6) k/uL RBC 3.95 L (4.30-5.90) m/uL MCV 114.7 H (80.0-100.0) fL MCH 36.1 H (25.0-35.0) pg Plt Count 68 L (150-450) k/uL Lymphocytes # 0.8 L (1.0-4.8) k/uL Macrocytosis Marked A PT (10.0-12.5) sec INR (<1.2) D-Dimer (<0.60) mg/L FEU Sodium (137-145) mmol/L Potassium (3.5-5.1) mmol/L Chloride (98-107) mmol/L BUN (9-20) mg/dL Creatinine (0.66-1.25) mg/dL Glucose (74-99) mg/dL Plasma Lactic Acid Elias 2.1 H* (0.7-2.0) mmol/L Calcium (8.4-10.2) mg/dL Phosphorus (2.5-4.5) mg/dL Magnesium (1.6-2.3) mg/dL Total Bilirubin (0.2-1.3) mg/dL AST (17-59) U/L ALT (4-49) U/L Alkaline Phosphatase (38-126) U/L Total Protein (6.3-8.2) g/dL Albumin (3.5-5.0) g/dL Lipase (23-300) U/L Urine Protein 2+ H (Negative) Urine Ketones 1+ H (Negative) Urine Blood Trace H (Negative) Urine Bilirubin 3+ H (Negative) Urine WBC 7 H (0-5) /hpf Hyaline Casts 14 H (0-2) /lpf Urine Mucus Moderate H (None) /hpf 08/04/24 Range/Units 08:57 WBC (3.8-10.6) k/uL RBC (4.30-5.90) m/uL MCV (80.0-100.0) fL MCH (25.0-35.0) pg Plt Count (150-450) k/uL Lymphocytes # (1.0-4.8) k/uL Macrocytosis PT (10.0-12.5) sec INR (<1.2) D-Dimer (<0.60) mg/L FEU Sodium 134 L (137-145) mmol/L Potassium 3.3 L (3.5-5.1) mmol/L Chloride (98-107) mmol/L BUN 4 L (9-20) mg/dL Creatinine 0.61 L (0.66-1.25) mg/dL Glucose (74-99) mg/dL Plasma Lactic Acid Elias (0.7-2.0) mmol/L Calcium 7.2 L (8.4-10.2) mg/dL Phosphorus 2.1 L (2.5-4.5) mg/dL Magnesium 1.0 L (1.6-2.3) mg/dL Total Bilirubin 13.0 H (0.2-1.3) mg/dL AST 313 H (17-59) U/L ALT 73 H (4-49) U/L Alkaline Phosphatase (38-126) U/L Total Protein (6.3-8.2) g/dL Albumin 3.2 L (3.5-5.0) g/dL Lipase 318 H (23-300) U/L Urine Protein (Negative) Urine Ketones (Negative) Urine Blood (Negative) Urine Bilirubin (Negative) Urine WBC (0-5) /hpf Hyaline Casts (0-2) /lpf Urine Mucus (None) /hpf
[2024-08-04] MEDS: THIAMINE 100 MG TAB PO SCH (14:33)
[2024-08-04] MEDS: FOLIC ACID 1 MG TAB PO SCH (14:33)
[2024-08-04] MEDS: MAGNESIUM SULFATE-D5W PMX 1 GM in DEXTROSE/WATER 1 100ML.BAG IVPB SCH (14:38)
[2024-08-04] MEDS: chlordiazePOXIDE 25 MG CAP PO SCH (15:19)
[2024-08-04] MEDS: hydrALAZINE HCL 20 MG/ML 1 ML VIAL IVP STA (18:58)
--- NOTE | 2024-08-04 21:52 | P.CONS ---
History of Present Illness - Reason for Consult Consult date: 08/04/24 Lower extremity rash Requesting physician: Collin Rubin - Chief Complaint Abdominal pain x few days - History of Present Illness Patient is a 44-year-old male with a past medical history of again for hypertension depression alcoholism, presenting hospital for evaluation of abdominal pain which is mostly in the right upper quadrant area describing it to be sharp moderate intensity without radiation associated nausea but no vomiting and denies having any diarrhea patient has been drinking heavily and drinks about 1/5 a day patient also mentioned previously a problem with the rash to right lower extremity that has been treated with antifungal cream and now over the last few days noticed to have worsening of the rash to the right lower extremity with occasional burning pain mild to moderate intensity without radiation denies any skin breakdown or any drainage patient on presentation to the hospital was running low-grade fever of 99.3 patient was tachycardic but not hypotensive or hypoxic no need for supplemental oxygen patient did have a white count of 3.5 potassium was 2.8 repeat is 3.3 creatinine is normal liver enzymes are elevated urine has been negative serum for less than 10 he did have abdominal pelvis CT gallbladder wall thickening edema and mildly periprostatic fluid without CT evidence of cholelithiasis consider HIDA scan CT angiogram of the chest no evidence for PE or any focal consolidation infectious was consulted regarding lower extremity rash concerning for possible fungal dermatitis Review of Systems Positive point and negatives has been mentioned in the HPI, complete review of systems was performed and all other systems are negative Past Medical History Past Medical History: Hypertension History of Any Multi-Drug Resistant Organisms: None Reported Past Surgical History: No Surgical Hx Reported Past Psychological History: Depression Smoking Status: Never smoker Past Alcohol Use History: Abuse, Daily Past Drug Use History: None Reported Medications and Allergies Home Medications Medication Instructions Recorded Confirmed Type cloNIDine HCL [Catapres] 0.2 mg PO HS 08/04/24 08/04/24 History Allergies Allergy/AdvReac Type Severity Reaction Status Date / Time No Known Allergies Allergy Verified 08/04/24 09:12 Physical Exam Vitals: Vital Signs Temp Pulse Resp BP Pulse Ox 08/04/24 14:44 110 H 16 156/113 98 08/04/24 12:35 99.6 F 105 H 18 162/121 95 08/04/24 11:03 107 H 18 160/116 95 08/04/24 07:49 109 H 18 134/93 96 08/04/24 06:00 98 F 105 H 20 133/99 100 08/04/24 04:00 105 H 20 151/101 98 08/04/24 02:00 109 H 20 154/104 98 08/04/24 00:00 111 H 22 148/105 96 08/03/24 22:00 110 H 22 156/106 98 08/03/24 21:00 123 H 22 165/120 95 08/03/24 20:00 98.1 F 115 H 22 180/132 96 08/03/24 17:37 99.3 F 139 H 18 148/98 94 L Intake and Output 08/03/24 08/04/24 08/04/24 22:59 06:59 14:59 Other: Weight 99.79 kg GENERAL DESCRIPTION: Middle-age male lying in bed, no distress. No tachypnea or accessory muscle of respiration use. HEENT: scleral icterus. Oral mucous membrane is dry. No pharyngeal erythema or thrush NECK: Trachea central, no thyromegaly. LUNGS: Unlabored breathing. Clear to auscultation anteriorly. No wheeze or crackle. HEART: S1, S2, regular rate and rhythm. No loud murmur ABDOMEN: Soft, distention but no significant tenderness EXTREMITIES: Rash to the right lower extremity mostly in patches without any open wound or any drainage SKIN: No rash, no masses palpable. NEUROLOGICAL: The patient is awake, alert, mood and affect normal. Results CBC & Chem 7: 08/04/24 08:57 08/04/24 08:57 Labs: Abnormal Lab Results - Last 24 Hours (Table) 08/03/24 08/03/24 08/03/24 Range/Units 18:34 18:34 18:34 WBC (3.8-10.6) k/uL RBC (4.30-5.90) m/uL MCV 112.0 H (80.0-100.0) fL MCH 36.7 H (25.0-35.0) pg Plt Count 71 L (150-450) k/uL Lymphocytes # 0.6 L (1.0-4.8) k/uL Macrocytosis Marked A PT 18.9 H (10.0-12.5) sec INR 1.9 H (<1.2) D-Dimer 1.10 H (<0.60) mg/L FEU Sodium 134 L (137-145) mmol/L Potassium 2.8 L (3.5-5.1) mmol/L Chloride 91 L (98-107) mmol/L BUN 5 L (9-20) mg/dL Creatinine (0.66-1.25) mg/dL Glucose 111 H (74-99) mg/dL Plasma Lactic Acid Elias (0.7-2.0) mmol/L Calcium 8.1 L (8.4-10.2) mg/dL Phosphorus 2.0 L (2.5-4.5) mg/dL Magnesium 0.6 L* (1.6-2.3) mg/dL Total Bilirubin 12.6 H (0.2-1.3) mg/dL AST 426 H (17-59) U/L ALT 96 H (4-49) U/L Alkaline Phosphatase 151 H (38-126) U/L Ammonia (<30) umol/L Total Protein 8.3 H (6.3-8.2) g/dL Albumin (3.5-5.0) g/dL Lipase (23-300) U/L Urine Protein (Negative) Urine Ketones (Negative) Urine Blood (Negative) Urine Bilirubin (Negative) Urine WBC (0-5) /hpf Hyaline Casts (0-2) /lpf Urine Mucus (None) /hpf 08/03/24 08/03/24 08/04/24 Range/Units 18:34 19:59 08:57 WBC 3.5 L (3.8-10.6) k/uL RBC 3.95 L (4.30-5.90) m/uL MCV 114.7 H (80.0-100.0) fL MCH 36.1 H (25.0-35.0) pg Plt Count 68 L (150-450) k/uL Lymphocytes # 0.8 L (1.0-4.8) k/uL Macrocytosis Marked A PT (10.0-12.5) sec INR (<1.2) D-Dimer (<0.60) mg/L FEU Sodium (137-145) mmol/L Potassium (3.5-5.1) mmol/L Chloride (98-107) mmol/L BUN (9-20) mg/dL Creatinine (0.66-1.25) mg/dL Glucose (74-99) mg/dL Plasma Lactic Acid Elias 2.1 H* (0.7-2.0) mmol/L Calcium (8.4-10.2) mg/dL Phosphorus (2.5-4.5) mg/dL Magnesium (1.6-2.3) mg/dL Total Bilirubin (0.2-1.3) mg/dL AST (17-59) U/L ALT (4-49) U/L Alkaline Phosphatase (38-126) U/L Ammonia (<30) umol/L Total Protein (6.3-8.2) g/dL Albumin (3.5-5.0) g/dL Lipase (23-300) U/L Urine Protein 2+ H (Negative) Urine Ketones 1+ H (Negative) Urine Blood Trace H (Negative) Urine Bilirubin 3+ H (Negative) Urine WBC 7 H (0-5) /hpf Hyaline Casts 14 H (0-2) /lpf Urine Mucus Moderate H (None) /hpf 08/04/24 08/04/24 Range/Units 08:57 12:56 WBC (3.8-10.6) k/uL RBC (4.30-5.90) m/uL MCV (80.0-100.0) fL MCH (25.0-35.0) pg Plt Count (150-450) k/uL Lymphocytes # (1.0-4.8) k/uL Macrocytosis PT (10.0-12.5) sec INR (<1.2) D-Dimer (<0.60) mg/L FEU Sodium 134 L (137-145) mmol/L Potassium 3.3 L (3.5-5.1) mmol/L Chloride (98-107) mmol/L BUN 4 L (9-20) mg/dL Creatinine 0.61 L (0.66-1.25) mg/dL Glucose (74-99) mg/dL Plasma Lactic Acid Elias (0.7-2.0) mmol/L Calcium 7.2 L (8.4-10.2) mg/dL Phosphorus 2.1 L (2.5-4.5) mg/dL Magnesium 1.0 L (1.6-2.3) mg/dL Total Bilirubin 13.0 H (0.2-1.3) mg/dL AST 313 H (17-59) U/L ALT 73 H (4-49) U/L Alkaline Phosphatase (38-126) U/L Ammonia 58 H (<30) umol/L Total Protein (6.3-8.2) g/dL Albumin 3.2 L (3.5-5.0) g/dL Lipase 318 H (23-300) U/L Urine Protein (Negative) Urine Ketones (Negative) Urine Blood (Negative) Urine Bilirubin (Negative) Urine WBC (0-5) /hpf Hyaline Casts (0-2) /lpf Urine Mucus (None) /hpf Assessment and Plan (1) Rash Current Visit: Yes Status: Acute Code(s): R21 - RASH AND OTHER NONSPECIFIC SKIN ERUPTION SNOMED Code(s): 152343720 Plan: 1patient with right lower extremity rash question of possible fungal dermatitis as the patient reported previous improvement with antifungal cream clinically not behaving as bacterial cellulitis, and this patient with no fever or elevated white count 2-patient be started on Lotrimin cream and will see response if no improvement will adjust antifungal therapy We will follow on clinical condition and cultures to further adjust medication if needed Thank you for this consultation we will follow the patient along with you Dictation was produced using [employer] dictation software. please excuse any g rammatical, word or spelling errors. Time with Patient: Greater than 30
[2024-08-04] MEDS: CLOTRIMAZOLE 1% CREAM 30 GM TUBE TOPICAL SCH (22:43)
[2024-08-05 04:43] LABS: ALT 66 U/L (4-49); AST 241 U/L (17-59); African American GFR (CKD) >90 (>60 ml/min/1.73 sqM); Albumin 3.1 g/dL (3.5-5.0); Albumin/Globulin Ratio 0.8; Alkaline Phosphatase 124 U/L (38-126); Anion Gap 10 mmol/L; Blood Urea Nitrogen 5 mg/dL (9-20); Calcium 7.2 mg/dL (8.4-10.2); Carbon Dioxide 24 mmol/L (22-30); Chloride 99 mmol/L (98-107); Globulin 3.9 g/dL; Glucose 82 mg/dL (74-99); Magnesium 1.6 mg/dL (1.6-2.3); Non-African American GFR(CKD) >90 (>60 ml/min/1.73 sqM); Potassium 3.2 mmol/L (3.5-5.1); Sodium 133 mmol/L (137-145)
[2024-08-05] MEDS: POTASSIUM CHLORIDE ER 20 MEQ TAB.ER PO SCH (04:59)
[2024-08-05 05:52] LABS: HCT 43.8 % (39.0-53.0); HGB 13.7 gm/dL (13.0-17.5); Hypochromasia Slight; MCH 36.2 pg (25.0-35.0); MCHC 31.3 g/dL (31.0-37.0); MCV 115.6 fL (80.0-100.0); Macrocytosis Marked; Mean Platelet Volume 11.9; RBC 3.79 m/uL (4.30-5.90); RDW 13.8 % (11.5-15.5); WBC 3.6 k/uL (3.8-10.6)
[2024-08-05 05:58] LABS: Platelet Count 72 k/uL (150-450)
--- NOTE | 2024-08-05 07:47 | US ---
EXAMINATION TYPE: US abdomen limited DATE OF EXAM: 08/05/2024 Exam done portable COMPARISON: CT 2024 CLINICAL INDICATION: Male, 44 years old with history of right upper quadrant pain; RUQ pain, jaundice TECHNIQUE: Grayscale imaging of the right upper quadrant was performed. FINDINGS: EXAM MEASUREMENTS: Liver Length: 22.1 cm Gallbladder Wall: 0.6 cm CBD: 0.4 cm Right Kidney: 12.6 x 6.3 x 6.0 cm Pancreas: obscured by overlying midline bowel gas Liver: enlarged, increased attenuation, decreased visualization of vessels suggestive of fatty infil trate Gallbladder: sludge, thickened wall, pericholecystic fluid present. Evidence for sonographic Gutierrez's sign: yes CBD: visualized portions wnl, limited by overlying bowel gas Right Kidney: wnl IMPRESSION: No evidence for acute cholecystitis with positive sonographic Gutierrez sign, biliary sludge and thicken ed gallbladder pendleton with pericholecystic fluid. [facility], , 08/05/2024 7:45 AM
[2024-08-05] MEDS: LORazepam 1 MG TAB PO PRN (07:52)
[2024-08-05] MEDS: amLODIPine 5 MG TAB PO SCH (07:52)
[2024-08-05] MEDS: LACTULOSE 20 GM/30 ML CUP PO SCH (08:02)
[2024-08-05 08:08] LABS: Stomatocytes Present
--- NOTE | 2024-08-05 12:34 | P.PN ---
Subjective Progress Note Date: 08/05/24 Principal diagnosis: Hospital course: Patient is a 44 year old male with past medical history of hypertension who presented to the ED with chief complaint of abdominal pain. He started drinking alcohol one and a half weeks earlier. Following which he started endorsing right upper quadrant abdominal pain along with nausea. He admits to dry heaves but de nies vomiting. He admits to drinking a fifth a day. He states having alcohol withdrawals in the past, but the abdominal pain he has currently is much lower than what he has experienced in the past. He denies alcohol withdrawal seizures. Associated with that he has a productive cough that started 2 weeks ago. He also complains of labored breathing. He went to urgent care and tested negative for Flu and Covid. He denies having COPD or CHF. Additionally he reports a rash on his right lower extremity that started in the popliteal fossa as a ringworm but is now extended to the entire right lower leg. He denies itching/pain/discharge. Denies fever, chills, shortness of breath, chest pain, palpitations, hematuria, dysuria, hematochezia, melena, headache, slurred speech, numbness, tingling, dizziness, lightheadedness, blurred vision, double vision. ED documentation reviewed. In the ED patient was treated with diazepam, magnesium oxide,, magnesium sulfate, ondansetron, pantoprazole, potassium bicarbonate, 0.9 normal saline, clonidine. Vitals on admission T 98.3 F, HI 139 bpm, RR 18, BP 148/98, oxygen saturation 94% on room air EKG independently interpreted as sinus tachycardia, rate 135 bpm, QTc 4 1 0 ms CTA shows no evidence of acute pulmonary embolism or acute pulmonary pathology CT abdomen pelvis shows gallbladder wall thickening/edema and mild pericholecystic fluid without CT evidence of cholelithiasis, severe hepatic steatosis Labs on admission show WBC 3.9, hemoglobin 16.2, platelet count 71, mild macrocytosis, PT 18.9, INR 1.9, D-dimer 1.10, sodium 134, potassium 2.8, anion gap 14, BUN 5, creatinine 0.68, lactic acid 2.1, magnesium 1.6, phosphorus 2, total bilirubin 12.6, AST 426, ALT 96, alkaline phosphatase 151, troponin I <0.012, NT-proBNP 44, lipase 230, serum alcohol < 10 UA shows 2+ protein, 1+ ketones, trace blood, 3+ bilirubin, 7 WBC, 14 hyaline casts, moderate mucus 08/05/24: Patient seen and examined at bedside today. BP today is 158/93 and pulse rate 89 bpm. Labs today show WBC 3.6, hemoglobin 13.7, marked macrocytosis, sodium 133, potassium 3.5, magnesium 1.6, calcium 7.2, total bilirubin 15, AST 241, ALT 66, ALP 124, ammonia 58, lipase 318. Abdomen ultrasound shows no evidence for acute cholecystitis with positive sonographic Gutierrez sign, biliary sludge and thickened gallbladder pendleton with pericholecystic fluid. Review of systems: Pertinent positives and negatives as discussed in HPI, a complete review of systems was performed and all other systems are negative. Vitals: Signs Reviewed Physical examination: General: nontoxic, no distress, appears at stated age Derm: warm, dry, intact Head: atraumatic, normocephalic, symmetric Eyes: EOMI, anicteric sclera Mouth: no lip lesion, mucus membranes moist Cardiovascular: S1 S2 reg, no murmur Lungs: CTA bilateral, no rhonchi, no rales, no accessory muscle use Abdominal: soft, mildly tender to palpation in right upper quadrant Extremities: rash on the right lower extremity; well demarcated, reddened borders with clear center in the popliteal fossa; excoriation on right lower leg; No pedal edema Neuro: Alert, Oriented, Gross neurological examination did not reveal any focal deficits. Psych: well appearing, appropriate affect Assessment/Plan: Patient is a 44 year old male with past medical history of hypertension who presented to the ED with chief complaint of abdominal pain. Active: #. Severe hepatic steatosis #. Alcohol withdrawal #. Right upper quadrant pain CT abdomen pelvis shows gallbladder wall thickening/edema and mild pericholecystic fluid without CT evidence of cholelithiasis, severe hepatic stea tosis Total bilirubin 12.6, AST 426, ALT 96 Abdomen ultrasound shows no evidence for acute cholecystitis with positive sonographic Gutierrez sign, biliary sludge and thickened gallbladder pendleton with pericholecystic fluid Ammonia level 58 Continue Lorazepam 2 mg p.o. every 3 hours as needed for CIWA 8-9, lorazepam 2 mg p.o. every 2 hours as needed for CIWA 10 or greater, lorazepam 1 mg p.o. every 4 hours as needed for CIWA 6-7, lorazepam 0.5 mg p.o. every 4 hours PRN for CIWA 4-5 Continue Librium 25 mg PO TID, thiamine 100 mg p.o. daily, folic acid 1 mg p.o. daily Started on Lactulose 30 gm PO TID Assess CIWA scale Recommend complete alcohol abstinence GI consulted, recommend outpatient follow up #. Hyopnatremia, improving Na 134 on admission Patient received 1000ml and 500 ml bolus of 0.9 normal saline Continue 0.9 normal saline at 130 ml/hr Monitor BMP #. Hypokalemia, improving K 2.8 on admission Patient received potassium bicarbonate 40 meq x3 Monitor BMP #. Hypomagnesemia, improving Magnesium 1.6 on admission Patient received Magnesium oxide 400 mg x2 and Magnesium sulphate 5gm IVPB once Monitor Magnesium level #. Hypertension Patient received Clonidine patch 0.3 mg transdermal patch in the ED Started on Amlodipine 5 mg PO daily #. Right lower extremity rash, likely fungal dermatitis Clotrimazole cream application topical BID ID is following #. Thrombocytopenia, likely related to alcoholic liver disease Platelet count 71 on admission Monitor CBC #. Elevated D-dimer CTA shows no evidence of acute pulmonary embolism or acute pulmonary pathology F: 0.9 normal saline at 130 ml/hr E: Replete potassium, sodium, magnesium N: Regular diet DVT prophylaxis: SCD GI prophylaxis: Pantoprazole 40 mg IV daily Attestation: I have personally seen and examined the patient with Resident, reviewed the documentation and participated and agree with the assessment and plan as written. Lasha Norton MD Objective - Vital Signs Vital signs: Vital Signs Temp 98.9 F 08/05/24 06:49 Pulse 89 08/05/24 06:49 Resp 16 08/05/24 06:49 BP 158/93 08/05/24 06:49 Pulse Ox 96 08/05/24 06:49 FiO2 Intake & Output 08/04/24 08/05/24 08/05/24 18:59 06:59 18:59 Weight 99.79 kg Other: Voiding Method Toilet # Voids 1 - Labs CBC & Chem 7: 08/05/24 04:03 08/05/24 08:27 Labs: Abnormal Lab Results - Last 24 Hours (Table) 08/04/24 08/04/24 08/04/24 Range/Units 08:57 08:57 12:56 WBC 3.5 L (3.8-10.6) k/uL RBC 3.95 L (4.30-5.90) m/uL MCV 114.7 H (80.0-100.0) fL MCH 36.1 H (25.0-35.0) pg Plt Count 68 L (150-450) k/uL Lymphocytes # 0.8 L (1.0-4.8) k/uL Macrocytosis Marked A Sodium 134 L (137-145) mmol/L Potassium 3.3 L (3.5-5.1) mmol/L BUN 4 L (9-20) mg/dL Creatinine 0.61 L (0.66-1.25) mg/dL Calcium 7.2 L (8.4-10.2) mg/dL Phosphorus 2.1 L (2.5-4.5) mg/dL Magnesium 1.0 L (1.6-2.3) mg/dL Total Bilirubin 13.0 H (0.2-1.3) mg/dL AST 313 H (17-59) U/L ALT 73 H (4-49) U/L Ammonia 58 H (<30) umol/L Albumin 3.2 L (3.5-5.0) g/dL Lipase 318 H (23-300) U/L 08/05/24 08/05/24 Range/Units 04:03 04:03 WBC 3.6 L (3.8-10.6) k/uL RBC 3.79 L (4.30-5.90) m/uL MCV 115.6 H (80.0-100.0) fL MCH 36.2 H (25.0-35.0) pg Plt Count 72 L (150-450) k/uL Lymphocytes # (1.0-4.8) k/uL Macrocytosis Marked A Sodium 133 L (137-145) mmol/L Potassium 3.2 L (3.5-5.1) mmol/L BUN 5 L (9-20) mg/dL Creatinine 0.61 L (0.66-1.25) mg/dL Calcium 7.2 L (8.4-10.2) mg/dL Phosphorus (2.5-4.5) mg/dL Magnesium (1.6-2.3) mg/dL Total Bilirubin 15.0 H (0.2-1.3) mg/dL AST 241 H (17-59) U/L ALT 66 H (4-49) U/L Ammonia (<30) umol/L Albumin 3.1 L (3.5-5.0) g/dL Lipase (23-300) U/L
[2024-08-05] MEDS: POTASSIUM CHLORIDE ER 20 MEQ TAB.ER PO STA (13:21)
[2024-08-05] MEDS: MAGNESIUM SULFATE-D5W PMX 1 GM in DEXTROSE/WATER 1 100ML.BAG IVPB SCH (13:21)
[2024-08-05] MEDS: MULTIVITAMINS, THERA 1 EACH TAB PO SCH (14:06)
--- NOTE | 2024-08-05 14:38 | P.PN ---
Subjective Progress Note Date: 08/05/24 Principal diagnosis: acute alcohol hepatitis This a pleasant 44-year-old male with a long history of alcoholism who had presented to the emergency department with multiple complaints including abdominal pain, nausea and vomiting and going through withdrawal symptoms. Patient states he went on a drinking dia recently secondary to stress. He has been a 14-year alcoholic and has gone through rehab as well as withdrawal multiple times. Average he drinks a pint to 1/5 a day states his last time he drank was about 5 days ago. He is in the [place] area visiting his parents and secondary to his symptoms came into the hospital for evaluation. Patient started on CIWA protocol. States that he does have a history of fatty liver disease which she thinks is likely secondary to drinking. No significant past medical history other than hypertension. He had a CT of the abdomen pelvis reporting severe hepatic steatosis and gastroenterology was consulted for further evaluation. Patient states he has noted that he has been jaundice and urine has been dark for last couple weeks. States last year he was jaundice as well and liver enzymes were elevated he went into rehab for a month and symptoms did improve. He does not follow with a collector of port, lives in [place]. Admitting labs WBC 3.9 hemoglobin 16.2 hematocrit 49 platelet count 71,000 INR 1.9 D-dimer 1.1 sodium 134 potassium 2.8 BUN 5 creatinine 0.6 lactic acid 2.1 magnesium 0.6 total bilirubin 12.6 AST 426 ALT 96 alkaline phosphatase 151 lipase 230 serum alcohol less than 10 Today's labs WBC 3.5 hemoglobin 14.2 platelet count 68,000 sodium 134 potassium 3.3 BUN 4 creatinine 0.6 magnesium 1.0 total bilirubin 13.0 AST 313 ALT 73 alkaline phosphatase 121 lipase 318 08/05/2024 Patient is seen and examined today as a follow-up. He continues to be deeply jaundice. Patient states he is doing well. Denies any severe withdrawal symptoms. Denies any nausea or vomiting. States he does have some discomfort at his right side of his abdomen. WBC 3.6 hemoglobin 13.7 platelet count 72,000 sodium 133 potassium 3.2 total bilirubin 15.0 AST 241 ALT 66 alkaline phosphatase 124 bilirubin Ammonia level 58. Abdominal ultrasound reports no evidence for acute cholecystitis with positive sonographic Gutierrez sign, biliary sludge and thickened gallbladder pendleton with. Cholecystic fluid. Liver enlarged increased attenuation decreased visualization of vessels suggestive of fatty infiltrate. Objective - Vital Signs Vital signs: Vital Signs Temp 98.9 F 08/05/24 06:49 Pulse 89 08/05/24 06:49 Resp 16 08/05/24 06:49 BP 158/93 08/05/24 06:49 Pulse Ox 96 08/05/24 06:49 FiO2 Intake & Output 08/04/24 08/05/24 08/05/24 18:59 06:59 18:59 Weight 99.79 kg Other: Voiding Method Toilet # Voids 1 - Exam General appearance: The patient is alert, oriented, appears in no acute distress. HET: Head is normocephalic and atraumatic. Conjunctiva pink. Sclera deeply icteric. Neck: Supple without lymphadenopathy. Abdomen: Soft, nontender, nondistended. Extremities: Normal skin color and turgor. No pedal edema Skin: No rashes, deeply jaundiced Neurological: No focal deficits. Alert and oriented. - Labs CBC & Chem 7: 08/05/24 04:03 08/05/24 08:27 Labs: Abnormal Lab Results - Last 24 Hours (Table) 08/04/24 08/04/24 08/04/24 Range/Units 08:57 08:57 12:56 WBC 3.5 L (3.8-10.6) k/uL RBC 3.95 L (4.30-5.90) m/uL MCV 114.7 H (80.0-100.0) fL MCH 36.1 H (25.0-35.0) pg Plt Count 68 L (150-450) k/uL Lymphocytes # 0.8 L (1.0-4.8) k/uL Macrocytosis Marked A Sodium 134 L (137-145) mmol/L Potassium 3.3 L (3.5-5.1) mmol/L BUN 4 L (9-20) mg/dL Creatinine 0.61 L (0.66-1.25) mg/dL Calcium 7.2 L (8.4-10.2) mg/dL Phosphorus 2.1 L (2.5-4.5) mg/dL Magnesium 1.0 L (1.6-2.3) mg/dL Total Bilirubin 13.0 H (0.2-1.3) mg/dL AST 313 H (17-59) U/L ALT 73 H (4-49) U/L Ammonia 58 H (<30) umol/L Albumin 3.2 L (3.5-5.0) g/dL Lipase 318 H (23-300) U/L 08/05/24 08/05/24 Range/Units 04:03 04:03 WBC 3.6 L (3.8-10.6) k/uL RBC 3.79 L (4.30-5.90) m/uL MCV 115.6 H (80.0-100.0) fL MCH 36.2 H (25.0-35.0) pg Plt Count 72 L (150-450) k/uL Lymphocytes # (1.0-4.8) k/uL Macrocytosis Marked A Sodium 133 L (137-145) mmol/L Potassium 3.2 L (3.5-5.1) mmol/L BUN 5 L (9-20) mg/dL Creatinine 0.61 L (0.66-1.25) mg/dL Calcium 7.2 L (8.4-10.2) mg/dL Phosphorus (2.5-4.5) mg/dL Magnesium (1.6-2.3) mg/dL Total Bilirubin 15.0 H (0.2-1.3) mg/dL AST 241 H (17-59) U/L ALT 66 H (4-49) U/L Ammonia (<30) umol/L Albumin 3.1 L (3.5-5.0) g/dL Lipase (23-300) U/L Assessment and Plan (1) Acute alcoholic hepatitis Narrative/Plan: 44-year-old male with 14-year history of alcoholism presenting after binge drinking with significantly elevated LFTs and bilirubin likely secondary to acute alcohol hepatitis. CT evidence of severe hepatic steatosis likely secondary to alcohol liver disease. Recommend alcohol abstinence, continue to monitor LFTs. Avoid hepatotoxic medications. And will need follow-up with gastroenterology on discharge in [place]. This all discussed with patient. Current Visit: Yes Status: Acute Code(s): K70.10 - ALCOHOLIC HEPATITIS WITHOUT ASCITES SNOMED Code(s): 5236871 (2) Liver disease Current Visit: Yes Status: Acute Code(s): K76.9 - LIVER DISEASE, UNSPECIFIED SNOMED Code(s): 109498569 (3) Alcohol withdrawal Narrative/Plan: Continue to monitor for withdrawal symptoms, CIWA protocol Current Visit: Yes Status: Acute Code(s): F10.939 - ALCOHOL USE, UNSPECIFIED WITH WITHDRAWAL, UNSPECIFIED SNOMED Code(s): 003955857 (4) Hyperbilirubinemia Current Visit: Yes Status: Acute Code(s): E80.6 - OTHER DISORDERS OF BILIRUBIN METABOLISM SNOMED Code(s): 79636727 (5) Hypokalemia Narrative/Plan: Replace per protocol Current Visit: Yes Status: Acute Code(s): E87.6 - HYPOKALEMIA SNOMED Code(s): 91943644 (6) Hypomagnesemia Narrative/Plan: Replace per protocol Current Visit: Yes Status: Acute Code(s): E83.42 - HYPOMAGNESEMIA SNOMED Code(s): 414663309 (7) Hyperammonemia Narrative/Plan: Secondary to liver disease, likely secondary to decompensated cirrhosis of the liver. Patient started on lactulose Current Visit: Yes Status: Acute Code(s): E72.20 - DISORDER OF UREA CYCLE METABOLISM, UNSPECIFIED SNOMED Code(s): 3694478 Plan: 1. Continue symptomatic and supportive care 2. Diet as tolerated 3. Monitor for withdrawal symptoms and continue CIWA protocol 4. Daily CBC, CMP, ammonia 5. Replace electrolytes per protocol 6. Recommend complete alcohol abstinence 7. Protonix 40 mg daily for GI prophylaxis 8. Will add lactulose 30 g 3 times daily, titrate to have 3-4 bowel movements daily 9. Discussed with patient importance of staying in the hospital to continue to monitor LFTs, can consider discharge once bilirubin starts to trend down Recommend outpatient follow-up with gastroenterology, patient from [place] and will need to establish a collector of port in that area. He verbalizes understanding Thank you for this consultation, we will continue to follow. Dr. June Marcano I agree with the dictator's note, documented as a scribe by Katy Crooks.
--- NOTE | 2024-08-05 14:52 | P.PN ---
Subjective Progress Note Date: 08/05/24 Principal diagnosis: Reason for follow-up the right lower extremity rash Patient is a 44-year-old male with a past medical history of again for hypertension depression alcoholism, presenting hospital for evaluation of abdominal pain which is mostly in the right upper quadrant area also noted to have rash to right lower extremity concern for possible fungal dermatitis prompting this consultation. On today's evaluation that is 08/05/2024, Patient is afebrile this morning patient denies having any chest pain shortness of breath or cough, the patient is currently on room air, patient denies any abdominal pain no diarrhea no nausea no vomiting or pain to the right lower extremity. Patient white count is 3.6, creatinine 0.61 liver enzymes elevated ultrasound did show some sludge thickened wall empirically with static fluid Objective - Vital Signs Vital signs: Vital Signs Temp 98.9 F 08/05/24 06:49 Pulse 89 08/05/24 06:49 Resp 16 08/05/24 06:49 BP 158/93 08/05/24 06:49 Pulse Ox 96 08/05/24 06:49 FiO2 Intake & Output 08/04/24 08/05/24 08/05/24 18:59 06:59 18:59 Weight 99.79 kg Other: Voiding Method Toilet # Voids 1 - Exam GENERAL DESCRIPTION: Middle-age male lying in bed in no distress RESPIRATORY SYSTEM: Unlabored breathing , decreased breath sounds at bases HEART: S1 S2 regular rate and rhythm , ABDOMEN: Soft distention but no significant tenderness EXTREMITIES: Right lower extremity right slightly decreased intensity - Labs CBC & Chem 7: 08/05/24 04:03 08/05/24 08:27 Labs: Abnormal Lab Results - Last 24 Hours (Table) 08/04/24 08/05/24 08/05/24 Range/Units 12:56 04:03 04:03 WBC 3.6 L (3.8-10.6) k/uL RBC 3.79 L (4.30-5.90) m/uL MCV 115.6 H (80.0-100.0) fL MCH 36.2 H (25.0-35.0) pg Plt Count 72 L (150-450) k/uL Macrocytosis Marked A Sodium 133 L (137-145) mmol/L Potassium 3.2 L (3.5-5.1) mmol/L BUN 5 L (9-20) mg/dL Creatinine 0.61 L (0.66-1.25) mg/dL Calcium 7.2 L (8.4-10.2) mg/dL Total Bilirubin 15.0 H (0.2-1.3) mg/dL AST 241 H (17-59) U/L ALT 66 H (4-49) U/L Ammonia 58 H (<30) umol/L Albumin 3.1 L (3.5-5.0) g/dL Assessment and Plan (1) Rash Current Visit: Yes Status: Acute Code(s): R21 - RASH AND OTHER NONSPECIFIC SKIN ERUPTION SNOMED Code(s): 921502211 Plan: 1patient with right lower extremity rash question of possible fungal dermatitis as the patient reported previous improvement with antifungal cream clinically not behaving as bacterial cellulitis, and this patient with no fever or elevated white count 2-patient to continue with Lotrimin cream in view of some clinical improvement 3patient did have abnormal ultrasound raising possibility of possible cholecystitis clinically he did not have any tenderness will add Zosyn empirically while awaiting further workup to be completed may benefit from surgi brady evaluation Dictation was produced using [employer] dictation software. please excuse any grammatical, word or spelling errors. Time with Patient: Less than 30
[2024-08-05] MEDS: PIPERACILLIN-TAZOBACTAM 3.375 GM in SODIUM CHLORIDE 0.9% 100 ML IVPB SCH (15:54)
[2024-08-06 10:11] LABS: ALT 62 U/L (10-49); AST 183 U/L (14-35); Albumin/Globulin Ratio 0.91 Ratio (1.60-3.17); Alkaline Phosphatase 123 U/L (41-126); BUN/Creat Ratio 6.14 Ratio (12.00-20.00); Blood Urea Nitrogen 4.3 mg/dL (9.0-27.0); Calcium 7.5 mg/dL (8.7-10.3); Carbon Dioxide 21.7 mmol/L (21.6-31.8); Chloride 100 mmol/L (96-109); Globulin 3.3 g/dL (1.6-3.3); Glucose 86 mg/dL (70-110); Sodium 135 mmol/L (135-145); Total Bilirubin 17.7 mg/dL (0.3-1.2); Total Protein 6.3 g/dL (6.2-8.2)
[2024-08-06] MEDS ORDERED: LORazepam 1 MG TAB PO PRN (11:16)
--- NOTE | 2024-08-06 11:20 | P.PN ---
Subjective Progress Note Date: 08/06/24 Principal diagnosis: Hospital course: Patient is a 44 year old male with past medical history of hypertension who presented to the ED with chief complaint of abdominal pain. He started drinking alcohol one and a half weeks earlier. Following which he started endorsing right upper quadrant abdominal pain along with nausea. He admits to dry heaves but de nies vomiting. He admits to drinking a fifth a day. He states having alcohol withdrawals in the past, but the abdominal pain he has currently is much lower than what he has experienced in the past. He denies alcohol withdrawal seizures. Associated with that he has a productive cough that started 2 weeks ago. He also complains of labored breathing. He went to urgent care and tested negative for Flu and Covid. He denies having COPD or CHF. Additionally he reports a rash on his right lower extremity that started in the popliteal fossa as a ringworm but is now extended to the entire right lower leg. He denies itching/pain/discharge. Denies fever, chills, shortness of breath, chest pain, palpitations, hematuria, dysuria, hematochezia, melena, headache, slurred speech, numbness, tingling, dizziness, lightheadedness, blurred vision, double vision. ED documentation reviewed. In the ED patient was treated with diazepam, magnesium oxide,, magnesium sulfate, ondansetron, pantoprazole, potassium bicarbonate, 0.9 normal saline, clonidine. Vitals on admission T 98.3 F, NC 139 bpm, RR 18, BP 148/98, oxygen saturation 94% on room air EKG independently interpreted as sinus tachycardia, rate 135 bpm, QTc 4 1 0 ms CTA shows no evidence of acute pulmonary embolism or acute pulmonary pathology CT abdomen pelvis shows gallbladder wall thickening/edema and mild pericholecystic fluid without CT evidence of cholelithiasis, severe hepatic steatosis Labs on admission show WBC 3.9, hemoglobin 16.2, platelet count 71, mild macrocytosis, PT 18.9, INR 1.9, D-dimer 1.10, sodium 134, potassium 2.8, anion gap 14, BUN 5, creatinine 0.68, lactic acid 2.1, magnesium 1.6, phosphorus 2, total bilirubin 12.6, AST 426, ALT 96, alkaline phosphatase 151, troponin I <0.012, NT-proBNP 44, lipase 230, serum alcohol < 10 UA shows 2+ protein, 1+ ketones, trace blood, 3+ bilirubin, 7 WBC, 14 hyaline casts, moderate mucus 08/05/24: Patient seen and examined at bedside today. BP today is 158/93 and pulse rate 89 bpm. Labs today show WBC 3.6, hemoglobin 13.7, marked macrocytosis, sodium 133, potassium 3.5, magnesium 1.6, calcium 7.2, total bilirubin 15, AST 241, ALT 66, ALP 124, ammonia 58, lipase 318. Abdomen ultrasound shows no evidence for acute cholecystitis with positive sonographic Gutierrez sign, biliary sludge and thickened gallbladder pendleton with pericholecystic fluid. 08/06/24: Patient evaluated today. BP today is 147/102, and pulse rate is 103 bpm. Labs today show magnesium 1.8. Last CIWA score is 0. Review of systems: Pertinent positives and negatives as discussed in HPI, a complete review of systems was performed and all other systems are negative. Vitals: Signs Reviewed Physical examination: General: nontoxic, no distress, appears at stated age Derm: warm, dry, intact Head: atraumatic, normocephalic, symmetric Eyes: EOMI, anicteric sclera Mouth: no lip lesion, mucus membranes moist Cardiovascular: S1 S2 reg, no murmur Lungs: CTA bilateral, no rhonchi, no rales, no accessory muscle use Abdominal: soft, mildly tender to palpation in right upper quadrant Extremities: rash on the right lower extremity; well demarcated, reddened borders with clear center in the popliteal fossa; excoriation on right lower leg; No pedal edema Neuro: Alert, Oriented, Gross neurological examination did not reveal any focal deficits. Psych: well appearing, appropriate affect Assessment/Plan: Patient is a 44 year old male with past medical history of hypertension who presented to the ED with chief complaint of abdominal pain. Active: #. Severe hepatic steatosis #. Alcohol withdrawal #. Right upper quadrant pain #. Possible cholecystitis CT abdomen pelvis shows gallbladder wall thickening/edema and mild pericholecystic fluid without CT evidence of cholelithiasis, severe hepatic steatosis Total bilirubin 12.6, AST 426, ALT 96 Abdomen ultrasound shows no evidence for acute cholecystitis with positive sonographic Gutierrez sign, biliary sludge and thickened gallbladder pendleton with pericholecystic fluid Ammonia level 58 Continue Lorazepam 2 mg p.o. every 3 hours as needed for CIWA 8-9, lorazepam 2 mg p.o. every 2 hours as needed for CIWA 10 or greater, lorazepam 1 mg p.o. every 4 hours as needed for CIWA 6-7, lorazepam 0.5 mg p.o. every 4 hours PRN for CIWA 4-5 Continue Librium 25 mg PO TID, thiamine 100 mg p.o. daily, folic acid 1 mg p.o. daily Continue Lactulose 30 gm PO TID Started on Zosyn per ID for possible cholecystitis Assess CIWA scale Recommend complete alcohol abstinence GI consulted, recommend outpatient follow up General surgery consulted #. Hyopnatremia, improving Na 134 on admission Patient received 1000ml and 500 ml bolus of 0.9 normal saline Continue 0.9 normal saline at 130 ml/hr Monitor BMP #. Hypokalemia, improving K 2.8 on admission Patient received potassium bicarbonate 40 meq x3 Monitor BMP #. Hypomagnesemia, improving Magnesium 1.6 on admission Patient received Magnesium oxide 400 mg x2 and Magnesium sulphate 5gm IVPB once Monitor Magnesium level #. Hypertension Patient received Clonidine patch 0.3 mg transdermal patch in the ED Started on Amlodipine 10 mg PO daily #. Right lower extremity rash, likely fungal dermatitis Clotrimazole cream application topical BID ID is following #. Thrombocytopenia, likely related to alcoholic liver disease Platelet count 71 on admission Monitor CBC #. Elevated D-dimer CTA shows no evidence of acute pulmonary embolism or acute pulmonary pathology F: 0.9 normal saline at 130 ml/hr E: Replete potassium, sodium, magnesium N: Regular diet DVT prophylaxis: SCD GI prophylaxis: Pantoprazole 40 mg IV daily Attestation: I have personally seen and examined the patient with Resident, reviewed the documentation and participated and agree with the assessment and plan as written. Lasha Norton MD Objective - Vital Signs Vital signs: Vital Signs Temp 98.4 F 08/06/24 07:23 Pulse 103 H 08/06/24 07:23 Resp 18 08/06/24 07:23 BP 147/102 08/06/24 07:23 Pulse Ox 94 L 08/06/24 07:23 FiO2 Intake & Output 08/05/24 08/06/24 08/06/24 18:59 06:59 18:59 Intake Total 480 Balance 480 Intake: Oral 480 Other: Voiding Method Toilet # Voids 4 4 # Bowel Movements 4 4 - Labs CBC & Chem 7: 08/05/24 04:03 08/07/24 05:36
--- NOTE | 2024-08-06 13:55 | P.GSCN ---
History of Present Illness Consult date: 08/06/24 History of present illness: CHIEF COMPLAINT: Abdominal pain nausea and vomiting HISTORY OF PRESENT ILLNESS: This is a 44-year-old male who presented with abdominal pain nausea vomiting and evidence of alcohol withdrawal. Patient has a known history of alcoholism. He reports after he drinks heavily he does get tightness in the right upper quadrant. He reports this usually goes away and as he starts feeling better. He is no longer having any nausea or vomiting. The abdominal pain has improved. He is having bowel movements. He has had elevated liver enzymes and total bilirubin likely due to his alcohol hepatitis. Patient is tolerating diet. CT scan abdomen pelvis and abdominal ultrasound had noted thickened gallbladder wall. Surgical service consulted for possible cholecystitis. Patient denies any prior abdominal surgeries. Denies any cardiac history. PAST MEDICAL HISTORY: See below PAST SURGICAL HISTORY: See below MEDICATIONS: See below ALLERGIES: See below SOCIAL HISTORY: No illicit drug use. REVIEW OF SYSTEMS: CONSTITUTIONAL: Denies fever or chills. HEENT: Denies blurred vision, vision changes, or eye pain. Denies hemoptysis CARDIOVASCULAR: Denies chest pain or pressure. RESPIRATORY: No shortness of breath. GASTROINTESTINAL: See HPI for pertinent findings HEMATOLOGIC: Denies bleeding disorders. GENITOURINARY: Denies any blood in urine or increased urinary frequency. SKIN: Denies pruitis. Denies rash. PHYSICAL EXAM: VITAL SIGNS: Reviewed GENERAL: Well-developed in no acute distress. HEENT: Scleral icterus present ABDOMEN: Soft. Mildly distended. Nontender no rebound or guarding noted. NEUROLOGIC: Alert and oriented. Cranial nerves II through XII grossly intact. Skin: Jaundice LABORATORY DATA: WBC 3.6 Hgb 13.7 platelets 72 Sodium 135 potassium 4.0 creatinine 0.7 Lactic acid 2.1 down to 1.4 Magnesium 0.6 up to 1.8 Total bilirubin 17.7 AST 183 ALT 62 alk phos 123 ammonia level 61 Lipase 318 Serum alcohol level less than 10 IMAGING: CT scan reports gallbladder wall thickening/edema and mild pericholecystic fluid without CT evidence for cholelithiasis. Severe hepatic steatosis. Gallbladder ultrasound reports no evidence for acute cholecystitis with positive Gutierrez sign, biliary sludge and thickened gallbladder pendleton with pericholecystic fluid ASSESSMENT: 1. Thickened gallbladder wall, pericholecystic fluid and biliary sludge noted on imaging studies. No evidence of gallstones. No evidence of acute cholecystitis. 2. Alcoholic hepatitis 3. Alcoholic liver disease 4. Alcohol withdraw 5. Elevated bilirubin and jaundice PLAN: -No surgical intervention planned -Continue regular diet -Continue GI management for liver disease -Continue management of alcohol withdrawal Thank you for this consultation. Physician Perishable Freight Inspector note has been reviewed by physician. Signing provider agrees with the documented findings, assessment, and plan of care. Attestation Patient seen and examined at bedside on 08/06/2024. Presented with chief complaint of severe abdominal pain. He also had nausea and vomiting. He has a known history of alcohol abuse and history of alcohol hepatitis. Currently laboratory values indicate alcohol cirrhosis with hyperbilirubinemia at 17.7 and ammonia level of 61. Patient was having significant right upper quadrant pain and states that he does get this type of pain after binge drinking. The pain has since been subsiding. CT scan was performed with finding of gallbladder wall thickening and mild pericholecystic fluid without evidence of Alma lithiasis. At this point, based on his alcohol history, no surgical intervention is planned as this does not appear to be acute cholecystitis. Recommend GI evaluation. Ashtyn Tuttle DO Past Medical History Past Medical History: Hypertension History of Any Multi-Drug Resistant Organisms: None Reported Past Surgical History: No Surgical Hx Reported Past Psychological History: Depression Smoking Status: Never smoker Past Alcohol Use History: Abuse, Daily Past Drug Use History: None Reported Medications and Allergies Home Medications Medication Instructions Recorded Confirmed Type cloNIDine HCL [Catapres] 0.2 mg PO HS 08/04/24 08/04/24 History Allergies Allergy/AdvReac Type Severity Reaction Status Date / Time No Known Allergies Allergy Verified 08/04/24 09:12 Surgical - Exam Osteopathic Statement: *. No significant issues noted on an osteopathic structural exam other than those noted in the History and Physical/Consult. Vital Signs Temp Pulse Resp BP Pulse Ox 99.3 F 139 H 18 148/98 94 L 08/03/24 17:37 08/03/24 17:37 08/03/24 17:37 08/03/24 17:37 08/03/24 17:37 Results - Labs 08/05/24 04:03 08/07/24 05:36 Abnormal Lab Results - Last 24 Hours (Table) 08/06/24 08/06/24 Range/Units 05:31 08:20 Anion Gap 13.30 H (4.00-12.00) mmol/L BUN 4.3 L (9.0-27.0) mg/dL BUN/Creatinine Ratio 6.14 L (12.00-20.00) Ratio Calcium 7.5 L (8.7-10.3) mg/dL Total Bilirubin 17.7 H (0.3-1.2) mg/dL AST 183 H (14-35) U/L ALT 62 H (10-49) U/L Ammonia 61 H (<30) umol/L Albumin 3.0 L (3.8-4.9) g/dL Albumin/Globulin Ratio 0.91 L (1.60-3.17) Ratio Diabetes panel 08/06/24 Range/Units 05:31 Sodium 135 (135-145) mmol/L Potassium 4.0 (3.5-5.5) mmol/L Chloride 100 (96-109) mmol/L Carbon Dioxide 21.7 (21.6-31.8) mmol/L BUN 4.3 L (9.0-27.0) mg/dL Creatinine 0.7 (0.6-1.5) mg/dL Glucose 86 (70-110) mg/dL Calcium 7.5 L (8.7-10.3) mg/dL AST 183 H (14-35) U/L ALT 62 H (10-49) U/L Alkaline Phosphatase 123 (41-126) U/L Total Protein 6.3 (6.2-8.2) g/dL Albumin 3.0 L (3.8-4.9) g/dL Calcium panel 08/06/24 Range/Units 05:31 Calcium 7.5 L (8.7-10.3) mg/dL Albumin 3.0 L (3.8-4.9) g/dL Pituitary panel 08/06/24 Range/Units 05:31 Sodium 135 (135-145) mmol/L Potassium 4.0 (3.5-5.5) mmol/L Chloride 100 (96-109) mmol/L Carbon Dioxide 21.7 (21.6-31.8) mmol/L BUN 4.3 L (9.0-27.0) mg/dL Creatinine 0.7 (0.6-1.5) mg/dL Glucose 86 (70-110) mg/dL Calcium 7.5 L (8.7-10.3) mg/dL Adrenal panel 08/06/24 Range/Units 05:31 Sodium 135 (135-145) mmol/L Potassium 4.0 (3.5-5.5) mmol/L Chloride 100 (96-109) mmol/L Carbon Dioxide 21.7 (21.6-31.8) mmol/L BUN 4.3 L (9.0-27.0) mg/dL Creatinine 0.7 (0.6-1.5) mg/dL Glucose 86 (70-110) mg/dL Calcium 7.5 L (8.7-10.3) mg/dL Total Bilirubin 17.7 H (0.3-1.2) mg/dL AST 183 H (14-35) U/L ALT 62 H (10-49) U/L Alkaline Phosphatase 123 (41-126) U/L Total Protein 6.3 (6.2-8.2) g/dL Albumin 3.0 L (3.8-4.9) g/dL
--- NOTE | 2024-08-06 14:04 | P.PN ---
Subjective Progress Note Date: 08/06/24 Principal diagnosis: acute alcohol hepatitis This a pleasant 44-year-old male with a long history of alcoholism who had presented to the emergency department with multiple complaints including abdominal pain, nausea and vomiting and going through withdrawal symptoms. Patient states he went on a drinking dia recently secondary to stress. He has been a 14-year alcoholic and has gone through rehab as well as withdrawal multiple times. Average he drinks a pint to 1/5 a day states his last time he drank was about 5 days ago. He is in the [place] area visiting his parents and secondary to his symptoms came into the hospital for evaluation. Patient started on CIWA protocol. States that he does have a history of fatty liver disease which she thinks is likely secondary to drinking. No significant past medical history other than hypertension. He had a CT of the abdomen pelvis reporting severe hepatic steatosis and gastroenterology was consulted for further evaluation. Patient states he has noted that he has been jaundice and urine has been dark for last couple weeks. States last year he was jaundice as well and liver enzymes were elevated he went into rehab for a month and symptoms did improve. He does not follow with a section beamer, lives in [place]. Admitting labs WBC 3.9 hemoglobin 16.2 hematocrit 49 platelet count 71,000 INR 1.9 D-dimer 1.1 sodium 134 potassium 2.8 BUN 5 creatinine 0.6 lactic acid 2.1 magnesium 0.6 total bilirubin 12.6 AST 426 ALT 96 alkaline phosphatase 151 lipase 230 serum alcohol less than 10 Today's labs WBC 3.5 hemoglobin 14.2 platelet count 68,000 sodium 134 potassium 3.3 BUN 4 creatinine 0.6 magnesium 1.0 total bilirubin 13.0 AST 313 ALT 73 alkaline phosphatase 121 lipase 318 08/05/2024 Patient is seen and examined today as a follow-up. He continues to be deeply jaundice. Patient states he is doing well. Denies any severe withdrawal symptoms. Denies any nausea or vomiting. States he does have some discomfort at his right side of his abdomen. WBC 3.6 hemoglobin 13.7 platelet count 72,000 sodium 133 potassium 3.2 total bilirubin 15.0 AST 241 ALT 66 alkaline phosphatase 124 bilirubin Ammonia level 58. Abdominal ultrasound reports no evidence for acute cholecystitis with positive sonographic Gutierrez sign, biliary sludge and thickened gallbladder pendleton with. Cholecystic fluid. Liver enlarged increased attenuation decreased visualization of vessels suggestive of fatty infiltrate. 08/06/2024 Patient seen and examined today as a follow-up. He is a little more drowsy and slightly difficult to wake. Ammonia level increasing to 61 today. Bilirubin continues to increase today 17.7 up from 15 AST and ALT with slight improvement. AST 183 ALT 62 alkaline phosphatase 123. Patient still has abdominal tenderness and discomfort mostly in the right upper quadrant. No nausea or vomiting. He did not take his lactulose this morning and is sitting at the bedside. Patient encouraged to take his lactulose. Objective - Vital Signs Vital signs: Vital Signs Temp 98.4 F 08/06/24 07:23 Pulse 103 H 08/06/24 08:00 Resp 18 08/06/24 08:00 BP 147/102 08/06/24 07:23 Pulse Ox 94 L 08/06/24 07:23 FiO2 Intake & Output 08/05/24 08/06/24 08/06/24 18:59 06:59 18:59 Intake Total 480 Balance 480 Intake: Oral 480 Other: Voiding Method Toilet Toilet # Voids 4 4 # Bowel Movements 4 4 - Exam General appearance: The patient is alert, oriented, appears in no acute distress. HET: Head is normocephalic and atraumatic. Conjunctiva pink. Sclera deeply icteric. Neck: Supple without lymphadenopathy. Abdomen: Soft, right upper quadrant tenderness, hepatomegaly, nondistended. Extremities: Normal skin color and turgor. No pedal edema Skin: No rashes, deeply jaundiced Neurological: No focal deficits. Alert and oriented. - Labs CBC & Chem 7: 08/05/24 04:03 08/06/24 05:31 Labs: Abnormal Lab Results - Last 24 Hours (Table) 08/06/24 08/06/24 Range/Units 05:31 08:20 Anion Gap 13.30 H (4.00-12.00) mmol/L BUN 4.3 L (9.0-27.0) mg/dL BUN/Creatinine Ratio 6.14 L (12.00-20.00) Ratio Calcium 7.5 L (8.7-10.3) mg/dL Total Bilirubin 17.7 H (0.3-1.2) mg/dL AST 183 H (14-35) U/L ALT 62 H (10-49) U/L Ammonia 61 H (<30) umol/L Albumin 3.0 L (3.8-4.9) g/dL Albumin/Globulin Ratio 0.91 L (1.60-3.17) Ratio Assessment and Plan (1) Acute alcoholic hepatitis Narrative/Plan: 44-year-old male with 14-year history of alcoholism presenting after binge drinking with significantly elevated LFTs and bilirubin likely secondary to acute alcohol hepatitis. CT evidence of severe hepatic steatosis likely secondary to alcohol liver disease. Recommend alcohol abstinence, continue to monitor LFTs. Avoid hepatotoxic medications. And will need follow-up with gastroenterology on discharge in [place]. This all discussed with patient. Current Visit: Yes Status: Acute Code(s): K70.10 - ALCOHOLIC HEPATITIS WITHOUT ASCITES SNOMED Code(s): 6992118 (2) Liver disease Current Visit: Yes Status: Acute Code(s): K76.9 - LIVER DISEASE, UNSPECIFIED SNOMED Code(s): 860050851 (3) Alcohol withdrawal Narrative/Plan: Continue to monitor for withdrawal symptoms, CIWA protocol Current Visit: Yes Status: Acute Code(s): F10.939 - ALCOHOL USE, UNSPECIFIED WITH WITHDRAWAL, UNSPECIFIED SNOMED Code(s): 579758462 (4) Hyperbilirubinemia Current Visit: Yes Status: Acute Code(s): E80.6 - OTHER DISORDERS OF BILIRUBIN METABOLISM SNOMED Code(s): 81356552 (5) Hypokalemia Narrative/Plan: Resolved Current Visit: Yes Status: Acute Code(s): E87.6 - HYPOKALEMIA SNOMED Code(s): 82581224 (6) Hypomagnesemia Narrative/Plan: Replace per protocol Current Visit: Yes Status: Acute Code(s): E83.42 - HYPOMAGNESEMIA SNOMED Code(s): 182904554 (7) Hyperammonemia Narrative/Plan: Secondary to liver disease, likely secondary to decompensated cirrhosis of the liver. Patient started on lactulose Current Visit: Yes Status: Acute Code(s): E72.20 - DISORDER OF UREA CYCLE METABOLISM, UNSPECIFIED SNOMED Code(s): 0275961 Plan: 1. Continue symptomatic and supportive care 2. Diet as tolerated 3. Monitor for withdrawal symptoms and continue CIWA protocol 4. Daily CBC, CMP, ammonia 5. Replace electrolytes per protocol 6. Recommend complete alcohol abstinence 7. Protonix 40 mg daily for GI prophylaxis 8. Continue lactulose 30 g 3 times daily, titrate to have 3-4 bowel movements daily 9. Discussed with patient importance of staying in the hospital to continue to monitor LFTs, can consider discharge once bilirubin starts to trend down Recommend outpatient follow-up with gastroenterology, patient from [place] and will need to establish a section beamer in that area. He verbalizes un derstanding Thank you for this consultation, we will continue to follow. Dr. June Marcano I agree with the dictator's note, documented as a scribe by Katy Crooks.
[2024-08-06] MEDS: ACETAMINOPHEN TAB 325 MG TAB PO PRN (21:01)
[2024-08-07 06:41] LABS: ALT 53 U/L (4-49); AST 138 U/L (17-59); African American GFR (CKD) >90 (>60 ml/min/1.73 sqM); Albumin 2.9 g/dL (3.5-5.0); Albumin/Globulin Ratio 0.8; Alkaline Phosphatase 116 U/L (38-126); Anion Gap 9 mmol/L; Blood Urea Nitrogen 4 mg/dL (9-20); Calcium 7.3 mg/dL (8.4-10.2); Carbon Dioxide 23 mmol/L (22-30); Chloride 106 mmol/L (98-107); Globulin 3.8 g/dL; Glucose 94 mg/dL (74-99); Non-African American GFR(CKD) >90 (>60 ml/min/1.73 sqM); Potassium 3.2 mmol/L (3.5-5.1); Sodium 138 mmol/L (137-145); Total Protein 6.7 g/dL (6.3-8.2)
[2024-08-07 07:07] LABS: Total Bilirubin 17.8 mg/dL (0.2-1.3)
[2024-08-07 07:25] LABS: INR 1.6 (<1.2); Prothrombin Time 16.9 sec (10.0-12.5)
[2024-08-07] MEDS: amLODIPine 10 MG TAB PO SCH (07:55)
[2024-08-07] MEDS: POTASSIUM CHLORIDE ER 20 MEQ TAB.ER PO STA (10:09)
[2024-08-07] MEDS: guaiFENesin 600 MG TABLET.ER PO SCH (12:14)
--- NOTE | 2024-08-07 12:32 | P.PN ---
Subjective Progress Note Date: 08/07/24 SURGICAL PROGRESS NOTE CHIEF COMPLAINT: Liver disease HISTORY OF PRESENT ILLNESS: Patient lying in bed comfortably. He reports tolerating diet. He denies any nausea or vomiting. He did have a temp of 100.1 last night. Currently afebrile. WBC elevated at 17.8 AST down from 1 83-1 38 ALT 62-53 alk phos 116 PHYSICAL EXAM: VITAL SIGNS: Reviewed. GENERAL: No acute distress. Jaundiced. HEENT: Scleral icterus present ABDOMEN: Soft. Nondistended. Nontender. NEUROLOGIC: Alert and oriented. Cranial nerves II through XII grossly intact. ASSESSMENT: 1. Thickened gallbladder wall, pericholecystic fluid and biliary sludge noted on imaging studies. No evidence of gallstones. No evidence of acute cholecystitis. 2. Alcoholic hepatitis 3. Alcoholic liver disease 4. Alcohol withdraw 5. Jaundice PLAN: -No surgical intervention planned -Continue regular diet -Continue GI management for liver disease -Continue management of alcohol withdrawal Physician Diesel Engine Specialist note has been reviewed by physician. Signing provider agrees with the documented findings, assessment, and plan of care. Objective - Vital Signs Vital signs: Vital Signs Temp 98.3 F 08/07/24 07:40 Pulse 87 08/07/24 07:55 Resp 16 08/07/24 07:55 BP 141/95 08/07/24 07:40 Pulse Ox 98 08/07/24 07:40 FiO2 Intake & Output 08/06/24 08/07/24 08/07/24 18:59 06:59 18:59 Intake Total 540 Balance 540 Intake: Oral 540 Other: Voiding Method Toilet Bedside Commode Bedside Commode # Voids 2 3 - Labs CBC & Chem 7: 08/05/24 04:03 08/07/24 05:36 Labs: Abnormal Lab Results - Last 24 Hours (Table) 08/07/24 08/07/24 08/07/24 Range/Units 05:36 05:36 05:36 PT 16.9 H (10.0-12.5) sec INR 1.6 H (<1.2) Potassium 3.2 L (3.5-5.1) mmol/L BUN 4 L (9-20) mg/dL Creatinine 0.59 L (0.66-1.25) mg/dL Calcium 7.3 L (8.4-10.2) mg/dL Total Bilirubin 17.8 H* (0.2-1.3) mg/dL AST 138 H (17-59) U/L ALT 53 H (4-49) U/L Ammonia 56 H (<30) umol/L Albumin 2.9 L (3.5-5.0) g/dL
--- NOTE | 2024-08-07 12:46 | P.PN ---
Subjective Progress Note Date: 08/07/24 Principal diagnosis: Hospital course: Patient is a 44 year old male with past medical history of hypertension who presented to the ED with chief complaint of abdominal pain. He started drinking alcohol one and a half weeks earlier. Following which he started endorsing right upper quadrant abdominal pain along with nausea. He admits to dry heaves but de nies vomiting. He admits to drinking a fifth a day. He states having alcohol withdrawals in the past, but the abdominal pain he has currently is much lower than what he has experienced in the past. He denies alcohol withdrawal seizures. Associated with that he has a productive cough that started 2 weeks ago. He also complains of labored breathing. He went to urgent care and tested negative for Flu and Covid. He denies having COPD or CHF. Additionally he reports a rash on his right lower extremity that started in the popliteal fossa as a ringworm but is now extended to the entire right lower leg. He denies itching/pain/discharge. Denies fever, chills, shortness of breath, chest pain, palpitations, hematuria, dysuria, hematochezia, melena, headache, slurred speech, numbness, tingling, dizziness, lightheadedness, blurred vision, double vision. ED documentation reviewed. In the ED patient was treated with diazepam, magnesium oxide,, magnesium sulfate, ondansetron, pantoprazole, potassium bicarbonate, 0.9 normal saline, clonidine. Vitals on admission T 98.3 F, IN 139 bpm, RR 18, BP 148/98, oxygen saturation 94% on room air EKG independently interpreted as sinus tachycardia, rate 135 bpm, QTc 4 1 0 ms CTA shows no evidence of acute pulmonary embolism or acute pulmonary pathology CT abdomen pelvis shows gallbladder wall thickening/edema and mild pericholecystic fluid without CT evidence of cholelithiasis, severe hepatic steatosis Labs on admission show WBC 3.9, hemoglobin 16.2, platelet count 71, mild macrocytosis, PT 18.9, INR 1.9, D-dimer 1.10, sodium 134, potassium 2.8, anion gap 14, BUN 5, creatinine 0.68, lactic acid 2.1, magnesium 1.6, phosphorus 2, total bilirubin 12.6, AST 426, ALT 96, alkaline phosphatase 151, troponin I <0.012, NT-proBNP 44, lipase 230, serum alcohol < 10 UA shows 2+ protein, 1+ ketones, trace blood, 3+ bilirubin, 7 WBC, 14 hyaline casts, moderate mucus 08/05/24: Patient seen and examined at bedside today. BP today is 158/93 and pulse rate 89 bpm. Labs today show WBC 3.6, hemoglobin 13.7, marked macrocytosis, sodium 133, potassium 3.5, magnesium 1.6, calcium 7.2, total bilirubin 15, AST 241, ALT 66, ALP 124, ammonia 58, lipase 318. Abdomen ultrasound shows no evidence for acute cholecystitis with positive sonographic Gutierrez sign, biliary sludge and thickened gallbladder pendleton with pericholecystic fluid. 08/06/24: Patient evaluated today. BP today is 147/102, and pulse rate is 103 bpm. Labs today show magnesium 1.8. Last CIWA score is 0. 08/07/24: Patient examined at bedside. Vital signs are stable. Labs today show INR 1.6, PT 16.9, K 3.2, total bilirubin 17.8, AST 138, ALT 53, Ammonia 56, albumin 2.9. Review of systems: Pertinent positives and negatives as discussed in HPI, a complete review of systems was performed and all other systems are negative. Vitals: Signs Reviewed Physical examination: General: nontoxic, no distress, appears at stated age Derm: warm, dry, intact Head: atraumatic, normocephalic, symmetric Eyes: EOMI, anicteric sclera Mouth: no lip lesion, mucus membranes moist Cardiovascular: S1 S2 reg, no murmur Lungs: CTA bilateral, no rhonchi, no rales, no accessory muscle use Abdominal: soft, mildly tender to palpation in right upper quadrant Extremities: rash on the right lower extremity; well demarcated, reddened borders with clear center in the popliteal fossa; excoriation on right lower leg; No pedal edema Neuro: Alert, Oriented, Gross neurological examination did not reveal any focal deficits. Psych: well appearing, appropriate affect Assessment/Plan: Patient is a 44 year old male with past medical history of hypertension who presented to the ED with chief complaint of abdominal pain. Active: #. Acute alcoholic hepatitis #. Alcohol withdrawal #. Possible cholecystitis CT abdomen pelvis shows gallbladder wall thickening/edema and mild pericholecystic fluid without CT evidence of cholelithiasis, severe hepatic steatosis Total bilirubin 12.6, AST 426, ALT 96 Abdomen ultrasound shows no evidence for acute cholecystitis with positive sonographic Gutierrez sign, biliary sludge and thickened gallbladder pendleton with pericholecystic fluid Ammonia level 58 Continue lorazepam 0.5 mg p.o. every 4 hours PRN, Lorazepam 1 mg PO Q6HR PRN Continue Librium 25 mg PO TID, thiamine 100 mg p.o. daily, folic acid 1 mg p.o. daily Continue Lactulose 30 gm PO TID, titrate to 3-4 bowel movements daily Continue Zosyn per ID for possible cholecystitis Recommend complete alcohol abstinence GI consulted, recommend discharge once bilirubin starts trending down General surgery consulted, recommend no surgical intervention ID is following #. Hypokalemia, improving K 2.8 on admission Potassium chloride PO 40 meq once Monitor BMP #. Hypomagnesemia, improving Magnesium 1.6 on admission Patient received Magnesium oxide 400 mg x2 and Magnesium sulphate 5gm IVPB once Monitor Magnesium level #. Hypertension Patient received Clonidine patch 0.3 mg transdermal patch in the ED Continue Amlodipine 10 mg PO daily #. Right lower extremity rash, likely fungal dermatitis Clotrimazole cream application topical BID ID is following #. Thrombocytopenia, likely related to alcoholic liver disease Platelet count 71 on admission Monitor CBC #. Elevated D-dimer CTA shows no evidence of acute pulmonary embolism or acute pulmonary pathology #. Hyopnatremia,resolved F: None E: Replete as required N: Regular diet DVT prophylaxis: SCD GI prophylaxis: Pantoprazole 40 mg IV daily Attestation: I have personally seen and examined the patient with Resident, reviewed the documentation and participated and agree with the assessment and plan as written. Lasha Norton MD Objective - Vital Signs Vital signs: Vital Signs Temp 98.3 F 08/07/24 07:40 Pulse 87 08/07/24 07:40 Resp 16 08/07/24 07:40 BP 141/95 08/07/24 07:40 Pulse Ox 98 08/07/24 07:40 FiO2 Intake & Output 08/06/24 08/07/24 08/07/24 18:59 06:59 18:59 Intake Total 540 Balance 540 Intake: Oral 540 Other: Voiding Method Toilet Bedside Commode # Voids 2 3 - Labs CBC & Chem 7: 08/05/24 04:03 08/07/24 05:36 Labs: Abnormal Lab Results - Last 24 Hours (Table) 08/06/24 08/06/24 08/07/24 Range/Units 05:31 08:20 05:36 PT (10.0-12.5) sec INR (<1.2) Potassium (3.5-5.1) mmol/L Anion Gap 13.30 H (4.00-12.00) mmol/L BUN 4.3 L (9.0-27.0) mg/dL Creatinine (0.66-1.25) mg/dL BUN/Creatinine Ratio 6.14 L (12.00-20.00) Ratio Calcium 7.5 L (8.7-10.3) mg/dL Total Bilirubin 17.7 H (0.3-1.2) mg/dL AST 183 H (14-35) U/L ALT 62 H (10-49) U/L Ammonia 61 H 56 H (<30) umol/L Albumin 3.0 L (3.8-4.9) g/dL Albumin/Globulin Ratio 0.91 L (1.60-3.17) Ratio 08/07/24 08/07/24 Range/Units 05:36 05:36 PT 16.9 H (10.0-12.5) sec INR 1.6 H (<1.2) Potassium 3.2 L (3.5-5.1) mmol/L Anion Gap (4.00-12.00) mmol/L BUN 4 L (9.0-27.0) mg/dL Creatinine 0.59 L (0.66-1.25) mg/dL BUN/Creatinine Ratio (12.00-20.00) Ratio Calcium 7.3 L (8.7-10.3) mg/dL Total Bilirubin 17.8 H* (0.3-1.2) mg/dL AST 138 H (14-35) U/L ALT 53 H (10-49) U/L Ammonia (<30) umol/L Albumin 2.9 L (3.8-4.9) g/dL Albumin/Globulin Ratio (1.60-3.17) Ratio
--- NOTE | 2024-08-07 14:30 | P.PN ---
Subjective Progress Note Date: 08/06/24 Principal diagnosis: Reason for follow-up the right lower extremity rash Patient is a 44-year-old male with a past medical history of again for hypertension depression alcoholism, presenting hospital for evaluation of abdominal pain which is mostly in the right upper quadrant area also noted to have rash to right lower extremity concern for possible fungal dermatitis prompting this consultation. On today's evaluation that is 08/06/2024: Patient has been afebrile and seem to be breathing comfortably currently on room air no chest pain shortness of breath or cough abdominal pain is diffuse intensity no new symptoms. Patient did have creatinine 0.7 no CBC was done today 08/07/2024,the patient did have a low-grade fever 100.1 F last evening however the patient is afebrile since then denies any chest pain shortness breath or cough, complaining ofmostly sore throat abdominal pain has decreased in intensity. Objective - Vital Signs Vital signs: Vital Signs Temp 98.4 F 08/06/24 07:23 Pulse 103 H 08/06/24 08:00 Resp 18 08/06/24 08:00 BP 147/102 08/06/24 07:23 Pulse Ox 94 L 08/06/24 07:23 FiO2 Intake & Output 08/05/24 08/06/24 08/06/24 18:59 06:59 18:59 Intake Total 480 Balance 480 Intake: Oral 480 Other: Voiding Method Toilet Toilet # Voids 4 4 # Bowel Movements 4 4 - Exam GENERAL DESCRIPTION: Middle-age male lying in bed in no distress RESPIRATORY SYSTEM: Unlabored breathing , decreased breath sounds at bases HEART: S1 S2 regular rate and rhythm , ABDOMEN: Soft distention but no significant tenderness EXTREMITIES: Right lower extremity right slightly decreased intensity - Labs CBC & Chem 7: 08/05/24 04:03 08/07/24 05:36 Labs: Abnormal Lab Results - Last 24 Hours (Table) 08/06/24 08/06/24 Range/Units 05:31 08:20 Anion Gap 13.30 H (4.00-12.00) mmol/L BUN 4.3 L (9.0-27.0) mg/dL BUN/Creatinine Ratio 6.14 L (12.00-20.00) Ratio Calcium 7.5 L (8.7-10.3) mg/dL Total Bilirubin 17.7 H (0.3-1.2) mg/dL AST 183 H (14-35) U/L ALT 62 H (10-49) U/L Ammonia 61 H (<30) umol/L Albumin 3.0 L (3.8-4.9) g/dL Albumin/Globulin Ratio 0.91 L (1.60-3.17) Ratio Assessment and Plan (1) Rash Current Visit: Yes Status: Acute Code(s): R21 - RASH AND OTHER NONSPECIFIC SKIN ERUPTION SNOMED Code(s): 415378874 (2) Abnormal ultrasound of abdomen Current Visit: Yes Status: Acute Code(s): R93.5 - ABN FINDINGS ON DX IMAGING OF ABD REGIONS, INC RETROPERITON SNOMED Code(s): 08008012008638068 Plan: 1patient with right lower extremity rash question of possible fungal dermatitis as the patient reported previous improvement with antifungal cream clinically not behaving as bacterial cellulitis, and this patient with no fever or elevated white count 2-patient to continue with Lotrimin cream in view of some clinical improvement 3patient did have abnormal ultrasound raising possibility of possible cholecystitis awaiting surgery evaluation continue with En Dictation was produced using [email or web address] dictation software. please excuse any grammatical, word or spelling errors. Time with Patient: Less than 30
--- NOTE | 2024-08-07 14:31 | P.PN ---
Subjective Progress Note Date: 08/07/24 Principal diagnosis: Reason for follow-up the right lower extremity rash Patient is a 44-year-old male with a past medical history of again for hypertension depression alcoholism, presenting hospital for evaluation of abdominal pain which is mostly in the right upper quadrant area also noted to have rash to right lower extremity concern for possible fungal dermatitis prompting this consultation. On today's evaluation that is 08/07/2024,the patient did have a low-grade fever 100.1 F last evening however the patient is afebrile since then denies any chest pain shortness breath or cough, complaining ofmostly sore throat abdominal pain has decreased in intensity. Patient did have INR 1.6, creatinine 0.59 Liver remains to be elevated Objective - Vital Signs Vital signs: Vital Signs Temp 98.3 F 08/07/24 07:40 Pulse 87 08/07/24 07:55 Resp 16 08/07/24 07:55 BP 141/95 08/07/24 07:40 Pulse Ox 98 08/07/24 07:40 FiO2 Intake & Output 08/06/24 08/07/24 08/07/24 18:59 06:59 18:59 Intake Total 540 Balance 540 Intake: Oral 540 Other: Voiding Method Toilet Bedside Commode Bedside Commode # Voids 2 3 - Exam GENERAL DESCRIPTION: Middle-age male lying in bed in no distress RESPIRATORY SYSTEM: Unlabored breathing , decreased breath sounds at bases HEART: S1 S2 regular rate and rhythm , ABDOMEN: Soft distention but no significant tenderness EXTREMITIES: Right lower extremity right slightly decreased intensity - Labs CBC & Chem 7: 08/05/24 04:03 08/07/24 05:36 Labs: Abnormal Lab Results - Last 24 Hours (Table) 08/07/24 08/07/24 08/07/24 Range/Units 05:36 05:36 05:36 PT 16.9 H (10.0-12.5) sec INR 1.6 H (<1.2) Potassium 3.2 L (3.5-5.1) mmol/L BUN 4 L (9-20) mg/dL Creatinine 0.59 L (0.66-1.25) mg/dL Calcium 7.3 L (8.4-10.2) mg/dL Total Bilirubin 17.8 H* (0.2-1.3) mg/dL AST 138 H (17-59) U/L ALT 53 H (4-49) U/L Ammonia 56 H (<30) umol/L Albumin 2.9 L (3.5-5.0) g/dL Assessment and Plan (1) Rash Current Visit: Yes Status: Acute Code(s): R21 - RASH AND OTHER NONSPECIFIC SKIN ERUPTION SNOMED Code(s): 052250376 (2) Abnormal ultrasound of abdomen Current Visit: Yes Status: Acute Code(s): R93.5 - ABN FINDINGS ON DX IMAGING OF ABD REGIONS, INC RETROPERITON SNOMED Code(s): 80221728955762748 Plan: 1patient with right lower extremity rash question of possible fungal dermatitis as the patient reported previous improvement with antifungal cream clinically not behaving as bacterial cellulitis, and this patient with no fever or elevated white count 2-patient to continue with Lotrimin cream in view of some clinical improvement 3patient did have abnormal ultrasound raising possibility of possible cholecystitis however general surgery has seen the patient mentioning no evidence of cholecystitis patient did have a low-grade fever we will check influenza PCR because of his symptoms of sore throat-positive will treat influenza and discontinue antibiotic Dictation was produced using [employer] dictation software. please excuse any grammatical, word or spelling errors. Time with Patient: Less than 30
--- NOTE | 2024-08-07 16:10 | P.PN ---
Subjective Progress Note Date: 08/07/24 Principal diagnosis: acute alcohol hepatitis This a pleasant 44-year-old male with a long history of alcoholism who had presented to the emergency department with multiple complaints including abdominal pain, nausea and vomiting and going through withdrawal symptoms. Patient states he went on a drinking dia recently secondary to stress. He has been a 14-year alcoholic and has gone through rehab as well as withdrawal multiple times. Average he drinks a pint to 1/5 a day states his last time he drank was about 5 days ago. He is in the [place] area visiting his parents and secondary to his symptoms came into the hospital for evaluation. Patient started on CIWA protocol. States that he does have a history of fatty liver disease which she thinks is likely secondary to drinking. No significant past medical history other than hypertension. He had a CT of the abdomen pelvis reporting severe hepatic steatosis and gastroenterology was consulted for further evaluation. Patient states he has noted that he has been jaundice and urine has been dark for last couple weeks. States last year he was jaundice as well and liver enzymes were elevated he went into rehab for a month and symptoms did improve. He does not follow with a nail specialist, lives in [place]. Admitting labs WBC 3.9 hemoglobin 16.2 hematocrit 49 platelet count 71,000 INR 1.9 D-dimer 1.1 sodium 134 potassium 2.8 BUN 5 creatinine 0.6 lactic acid 2.1 magnesium 0.6 total bilirubin 12.6 AST 426 ALT 96 alkaline phosphatase 151 lipase 230 serum alcohol less than 10 Today's labs WBC 3.5 hemoglobin 14.2 platelet count 68,000 sodium 134 potassium 3.3 BUN 4 creatinine 0.6 magnesium 1.0 total bilirubin 13.0 AST 313 ALT 73 alkaline phosphatase 121 lipase 318 08/05/2024 Patient is seen and examined today as a follow-up. He continues to be deeply jaundice. Patient states he is doing well. Denies any severe withdrawal symptoms. Denies any nausea or vomiting. States he does have some discomfort at his right side of his abdomen. WBC 3.6 hemoglobin 13.7 platelet count 72,000 sodium 133 potassium 3.2 total bilirubin 15.0 AST 241 ALT 66 alkaline phosphatase 124 bilirubin Ammonia level 58. Abdominal ultrasound reports no evidence for acute cholecystitis with positive sonographic Gutierrez sign, biliary sludge and thickened gallbladder pendleton with. Cholecystic fluid. Liver enlarged increased attenuation decreased visualization of vessels suggestive of fatty infiltrate. 08/06/2024 Patient seen and examined today as a follow-up. He is a little more drowsy and slightly difficult to wake. Ammonia level increasing to 61 today. Bilirubin continues to increase today 17.7 up from 15 AST and ALT with slight improvement. AST 183 ALT 62 alkaline phosphatase 123. Patient still has abdominal tenderness and discomfort mostly in the right upper quadrant. No nausea or vomiting. He did not take his lactulose this morning and is sitting at the bedside. Patient encouraged to take his lactulose. 08/07/2024 Patient is seen and examined today as a follow-up. Patient was currently slee ping. States that he is getting the best sleep of his life and he is so tired. Lactulose is at the bedside and had not been taken yet. Patient had not eaten his breakfast. Repeat labs show slight elevation in total bilirubin, AST and ALT with slight improvement as well as ammonia level. Patient had about 4 bowel movements yesterday recorded Objective - Vital Signs Vital signs: Vital Signs Temp 98.3 F 08/07/24 07:40 Pulse 87 08/07/24 07:40 Resp 16 08/07/24 07:40 BP 141/95 08/07/24 07:40 Pulse Ox 98 08/07/24 07:40 FiO2 Intake & Output 08/06/24 08/07/24 08/07/24 18:59 06:59 18:59 Intake Total 540 Balance 540 Intake: Oral 540 Other: Voiding Method Toilet Bedside Commode # Voids 2 3 - Exam General appearance: The patient is drowsy, appears encephalopathic, oriented, appears in no acute distress. HET: Head is normocephalic and atraumatic. Conjunctiva pink. Sclera deeply icteric. Neck: Supple without lymphadenopathy. Abdomen: Soft, right upper quadrant tenderness, hepatomegaly, nondistended. Extremities: Normal skin color and turgor. No pedal edema Skin: No rashes, deeply jaundiced Neurological: No focal deficits. Alert and oriented. - Labs CBC & Chem 7: 08/05/24 04:03 08/07/24 05:36 Labs: Abnormal Lab Results - Last 24 Hours (Table) 08/06/24 08/06/24 08/07/24 Range/Units 05:31 08:20 05:36 PT (10.0-12.5) sec INR (<1.2) Potassium (3.5-5.1) mmol/L Anion Gap 13.30 H (4.00-12.00) mmol/L BUN 4.3 L (9.0-27.0) mg/dL Creatinine (0.66-1.25) mg/dL BUN/Creatinine Ratio 6.14 L (12.00-20.00) Ratio Calcium 7.5 L (8.7-10.3) mg/dL Total Bilirubin 17.7 H (0.3-1.2) mg/dL AST 183 H (14-35) U/L ALT 62 H (10-49) U/L Ammonia 61 H 56 H (<30) umol/L Albumin 3.0 L (3.8-4.9) g/dL Albumin/Globulin Ratio 0.91 L (1.60-3.17) Ratio 08/07/24 08/07/24 Range/Units 05:36 05:36 PT 16.9 H (10.0-12.5) sec INR 1.6 H (<1.2) Potassium 3.2 L (3.5-5.1) mmol/L Anion Gap (4.00-12.00) mmol/L BUN 4 L (9.0-27.0) mg/dL Creatinine 0.59 L (0.66-1.25) mg/dL BUN/Creatinine Ratio (12.00-20.00) Ratio Calcium 7.3 L (8.7-10.3) mg/dL Total Bilirubin 17.8 H* (0.3-1.2) mg/dL AST 138 H (14-35) U/L ALT 53 H (10-49) U/L Ammonia (<30) umol/L Albumin 2.9 L (3.8-4.9) g/dL Albumin/Globulin Ratio (1.60-3.17) Ratio Assessment and Plan (1) Acute alcoholic hepatitis Narrative/Plan: 44-year-old male with 14-year history of alcoholism presenting after binge drinking with significantly elevated LFTs and bilirubin likely secondary to acute alcohol hepatitis. CT evidence of severe hepatic steatosis likely secondary to alcohol liver disease. Recommend alcohol abstinence, continue to monitor LFTs. Avoid hepatotoxic medications. And will need follow-up with gastroenterology on discharge in [place]. This all discussed with patient. Current Visit: Yes Status: Acute Code(s): K70.10 - ALCOHOLIC HEPATITIS WITHOUT ASCITES SNOMED Code(s): 6788791 (2) Liver disease Current Visit: Yes Status: Acute Code(s): K76.9 - LIVER DISEASE, UNSPECIFIED SNOMED Code(s): 168444335 (3) Alcohol withdrawal Narrative/Plan: Continue to monitor for withdrawal symptoms, CIWA protocol Current Visit: Yes Status: Acute Code(s): F10.939 - ALCOHOL USE, UNSPECIFIED WITH WITHDRAWAL, UNSPECIFIED SNOMED Code(s): 949351215 (4) Hyperbilirubinemia Current Visit: Yes Status: Acute Code(s): E80.6 - OTHER DISORDERS OF BILIRUBIN METABOLISM SNOMED Code(s): 12088753 (5) Hypokalemia Current Visit: Yes Status: Acute Code(s): E87.6 - HYPOKALEMIA SNOMED Code(s): 69133913 (6) Hypomagnesemia Current Visit: Yes Status: Acute Code(s): E83.42 - HYPOMAGNESEMIA SNOMED Code(s): 379583207 (7) Hyperammonemia Narrative/Plan: Secondary to liver disease, likely secondary to decompensated cirrhosis of the liver. Patient started on lactulose Current Visit: Yes Status: Acute Code(s): E72.20 - DISORDER OF UREA CYCLE METABOLISM, UNSPECIFIED SNOMED Code(s): 6647159 (8) Hepatic encephalopathy Current Visit: Yes Status: Acute Code(s): K76.82 - HEPATIC ENCEPHALOPATHY SNOMED Code(s): 75031461 Plan: 1. Continue symptomatic and supportive care 2. Avoid hepatotoxic medications 3. Diet as tolerated 4. Daily CMP, ammonia 5. Continue lactulose 30 g 3 times daily, titrate to have 3-4 bowel movements daily 6. Encourage ambulation 7. Continue with CIWA protocol 8. Recommend alcohol abstinence 9. Replace electrolytes per protocol 10. Recommend outpatient follow-up with gastroenterology Thank you for this consultation, we will continue to follow. Dr. June Marcano I agree with the dictator's note, documented as a scribe by Katy Crooks.
[2024-08-07 17:28] LABS: Influenza A Not Detected (Not Detectd); Influenza B Not Detected (Not Detectd); RSV Not Detected (Not Detectd)
[2024-08-08 06:44] LABS: ALT 49 U/L (4-49); AST 129 U/L (17-59); African American GFR (CKD) >90 (>60 ml/min/1.73 sqM); Albumin 2.9 g/dL (3.5-5.0); Albumin/Globulin Ratio 0.7; Alkaline Phosphatase 127 U/L (38-126); Anion Gap 8 mmol/L; Blood Urea Nitrogen 4 mg/dL (9-20); Calcium 7.8 mg/dL (8.4-10.2); Carbon Dioxide 24 mmol/L (22-30); Chloride 105 mmol/L (98-107); Globulin 3.9 g/dL; Glucose 94 mg/dL (74-99); Non-African American GFR(CKD) >90 (>60 ml/min/1.73 sqM); Potassium 3.7 mmol/L (3.5-5.1); Sodium 137 mmol/L (137-145); Total Protein 6.8 g/dL (6.3-8.2)
[2024-08-08 06:52] LABS: Total Bilirubin 18.4 mg/dL (0.2-1.3)
--- NOTE | 2024-08-08 11:08 | P.PN ---
Subjective Progress Note Date: 08/08/24 Principal diagnosis: acute alcohol hepatitis This a pleasant 44-year-old male with a long history of alcoholism who had presented to the emergency department with multiple complaints including abdominal pain, nausea and vomiting and going through withdrawal symptoms. Patient states he went on a drinking dia recently secondary to stress. He has been a 14-year alcoholic and has gone through rehab as well as withdrawal multiple times. Average he drinks a pint to 1/5 a day states his last time he drank was about 5 days ago. He is in the [place] area visiting his parents and secondary to his symptoms came into the hospital for evaluation. Patient started on CIWA protocol. States that he does have a history of fatty liver disease which she thinks is likely secondary to drinking. No significant past medical history other than hypertension. He had a CT of the abdomen pelvis reporting severe hepatic steatosis and gastroenterology was consulted for further evaluation. Patient states he has noted that he has been jaundice and urine has been dark for last couple weeks. States last year he was jaundice as well and liver enzymes were elevated he went into rehab for a month and symptoms did improve. 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 Admitting labs WBC 3.9 hemoglobin 16.2 hematocrit 49 platelet count 71,000 INR 1.9 D-dimer 1.1 sodium 134 potassium 2.8 BUN 5 creatinine 0.6 lactic acid 2.1 magnesium 0.6 total bilirubin 12.6 AST 426 ALT 96 alkaline phosphatase 151 lipase 230 serum alcohol less than 10 Today's labs WBC 3.5 hemoglobin 14.2 platelet count 68,000 sodium 134 potassium 3.3 BUN 4 creatinine 0.6 magnesium 1.0 total bilirubin 13.0 AST 313 ALT 73 alkaline phosphatase 121 lipase 318 08/05/2024 Patient is seen and examined today as a follow-up. He continues to be deeply jaundice. Patient states he is doing well. Denies any severe withdrawal symptoms. Denies any nausea or vomiting. States he does have some discomfort at his right side of his abdomen. WBC 3.6 hemoglobin 13.7 platelet count 72,000 sodium 133 potassium 3.2 total bilirubin 15.0 AST 241 ALT 66 alkaline phosphatase 124 bilirubin Ammonia level 58. Abdominal ultrasound reports no evidence for acute cholecystitis with positive sonographic Gutierrez sign, biliary sludge and thickened gallbladder pendleton with. Cholecystic fluid. Liver enlarged increased attenuation decreased visualization of vessels suggestive of fatty infiltrate. 08/06/2024 Patient seen and examined today as a follow-up. He is a little more drowsy and slightly difficult to wake. Ammonia level increasing to 61 today. Bilirubin continues to increase today 17.7 up from 15 AST and ALT with slight improvement. AST 183 ALT 62 alkaline phosphatase 123. Patient still has abdominal tenderness and discomfort mostly in the right upper quadrant. No nausea or vomiting. He did not take his lactulose this morning and is sitting at the bedside. Patient encouraged to take his lactulose. 08/07/2024 Patient is seen and examined today as a follow-up. Patient was currently slee ping. States that he is getting the best sleep of his life and he is so tired. Lactulose is at the bedside and had not been taken yet. Patient had not eaten his breakfast. Repeat labs show slight elevation in total bilirubin, AST and ALT with slight improvement as well as ammonia level. Patient had about 4 bowel movements yesterday recorded 08/08/2024 Patient seen and examined this morning as a follow-up. He was resting but easily arousable and alert. States he had several bowel movements yesterday. Denies any nausea or vomiting. Still has some right upper quadrant abdominal tenderness with palpation otherwise no complaints. Bilirubin continues slightly to trend up today 18.4, LFTs stable and trending down AST 129 ALT 49 alkaline phosphatase 127. Patient is afebrile. Objective - Vital Signs Vital signs: Vital Signs Temp 98.8 F 08/08/24 07:31 Pulse 110 H 08/08/24 07:31 Resp 19 08/08/24 07:31 BP 150/88 08/08/24 07:31 Pulse Ox 93 L 08/08/24 07:31 FiO2 Intake & Output 08/07/24 08/08/24 08/08/24 18:59 06:59 18:59 Other: Voiding Method Bedside Commode Bedside Commode # Voids 3 2 # Bowel Movements 1 - Exam General appearance: The patient is drowsy, appears encephalopathic, oriented, appears in no acute distress. HET: Head is normocephalic and atraumatic. Conjunctiva pink. Sclera deeply icteric. Neck: Supple without lymphadenopathy. Abdomen: Soft, right upper quadrant tenderness, hepatomegaly, nondistended. Extremities: Normal skin color and turgor. No pedal edema Skin: No rashes, deeply jaundiced Neurological: No focal deficits. Alert and oriented. - Labs CBC & Chem 7: 08/05/24 04:03 08/08/24 05:21 Labs: Abnormal Lab Results - Last 24 Hours (Table) 08/08/24 Range/Units 05:21 BUN 4 L (9-20) mg/dL Creatinine 0.57 L (0.66-1.25) mg/dL Calcium 7.8 L (8.4-10.2) mg/dL Total Bilirubin 18.4 H* (0.2-1.3) mg/dL AST 129 H (17-59) U/L Alkaline Phosphatase 127 H (38-126) U/L Albumin 2.9 L (3.5-5.0) g/dL Assessment and Plan (1) Acute alcoholic hepatitis Narrative/Plan: 44-year-old male with 14-year history of alcoholism presenting after binge drinking with significantly elevated LFTs and bilirubin likely secondary to acute alcohol hepatitis. CT evidence of severe hepatic steatosis likely secondary to alcohol liver disease. Recommend alcohol abstinence, continue to monitor LFTs. Avoid hepatotoxic medications. And will need follow-up with gastroenterology on discharge in [place]. This all discussed with patient. Current Visit: Yes Status: Acute Code(s): K70.10 - ALCOHOLIC HEPATITIS WITHOUT ASCITES SNOMED Code(s): 1492816 (2) Liver disease Current Visit: Yes Status: Acute Code(s): K76.9 - LIVER DISEASE, UNSPECIFIED SNOMED Code(s): 061230004 (3) Alcohol withdrawal Current Visit: Yes Status: Acute Code(s): F10.939 - ALCOHOL USE, UNSPECIFIED WITH WITHDRAWAL, UNSPECIFIED SNOMED Code(s): 141183805 (4) Hyperbilirubinemia Current Visit: Yes Status: Acute Code(s): E80.6 - OTHER DISORDERS OF BILIRUBIN METABOLISM SNOMED Code(s): 65403091 (5) Hypokalemia Narrative/Plan: Replace per protocol Current Visit: Yes Status: Acute Code(s): E87.6 - HYPOKALEMIA SNOMED Code(s): 35714937 (6) Hypomagnesemia Narrative/Plan: Replace per protocol Current Visit: Yes Status: Acute Code(s): E83.42 - HYPOMAGNESEMIA SNOMED Code(s): 274621117 (7) Hyperammonemia Narrative/Plan: Secondary to liver disease, likely secondary to decompensated cirrhosis of the liver. Patient started on lactulose Current Visit: Yes Status: Acute Code(s): E72.20 - DISORDER OF UREA CYCLE METABOLISM, UNSPECIFIED SNOMED Code(s): 2632747 (8) Hepatic encephalopathy Current Visit: Yes Status: Acute Code(s): K76.82 - HEPATIC ENCEPHALOPATHY SNOMED Code(s): 99006270 Plan: 1. Continue symptomatic and supportive care 2. Avoid hepatotoxic medications 3. Diet as tolerated 4. Daily CMP, monitor INR 5. Continue lactulose 30 g 3 times daily, titrate to have 3-4 bowel movements daily 6. Encourage ambulation 7. Continue with CIWA protocol 8. Recommend alcohol abstinence 9. Replace electrolytes per protocol 10. Patient can be discharged once bilirubin remains stable 11. Recommend outpatient follow-up with gastroenterology next week here in [place]. 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 If further evaluation by gastroenterology is required the patient will need transfer as per the primary team's discretion. Dr. June Marcano I agree with the dictator's note, documented as a scribe by Katy Crooks.
--- NOTE | 2024-08-08 11:35 | P.DS ---
Providers Date of admission: 08/03/24 21:56 Expected date of discharge: 08/08/24 Attending physician: Rocky Vargas Consults: 08/03/24 21:56 Consult Physician Routine Consulting Provider: Virginia Marcano Consult Reason/Comments: liver Do you want consulting provider notified?: Yes 08/04/24 14:21 Consult Physician Routine Consulting Provider: Wally Yao Consult Reason/Comments: right lower extremity rash Do you want consulting provider notified?: Yes Primary care physician: Stated None Hospital Course: Discharge diagnosis: Acute alcoholic hepatitis Hepatic steatosis Alcohol withdrawal Hypertension Right lower extremity rash, likely fungal dermatitis Thrombocytopenia, likely related to alcoholic liver disease Elevated D-dimer Hyopnatremia,resolved Hypokalemia, improving Hypomagnesemia, improving Hospital Course: Patient is a 44 year old male with past medical history of hypertension who presented to the ED with chief complaint of abdominal pain. He started drinking alcohol one and a half weeks earlier. Following which he started endorsing right upper quadrant abdominal pain along with nausea. He admits to dry heaves but denies vomiting. He admits to drinking a fifth a day. He states having alcohol withdrawals in the past, but the abdominal pain he has currently is much lower than what he has experienced in the past. He denies alcohol withdrawal seizures. Associated with that he has a productive cough that started 2 weeks ago. He also complains of labored breathing. He went to urgent care and tested negative for Flu and Covid. He denies having COPD or CHF. Additionally he reports a rash on his right lower extremity that started in the popliteal fossa as a ringworm but is now extended to the entire right lower leg. He denies itching/pain/discharge. Denies fever, chills, shortness of breath, chest pain, palpitations, hematuria, dysuria, hematochezia, melena, headache, slurred speech, numbness, tingling, dizziness, lightheadedness, blurred vision, double vision. ED documentation reviewed. In the ED patient was treated with diazepam, magnesium oxide,, magnesium sulfate, ondansetron, pantoprazole, potassium bicarbonate, 0.9 normal saline, clonidine. Vitals on admission T 98.3 F, ND 139 bpm, RR 18, BP 148/98, oxygen saturation 94% on room air. EKG independently interpreted as sinus tachycardia, rate 135 bpm, QTc 4 1 0 ms. CTA shows no evidence of acute pulmonary embolism or acute pulmonary pathology. CT abdomen pelvis shows gallbladder wall thickening/edema and mild pericholecystic fluid without CT evidence of cholelithiasis, severe hepatic steatosis. Labs on admission show WBC 3.9, hemoglobin 16.2, platelet count 71, mild macrocytosis, PT 18.9, INR 1.9, D-dimer 1.10, sodium 134, potassium 2.8, anion gap 14, BUN 5, creatinine 0.68, lactic acid 2.1, magnesium 1.6, phosphorus 2, total bilirubin 12.6, AST 426, ALT 96, alkaline phosphatase 151, troponin I <0.012, NT-proBNP 44, lipase 230, serum alcohol < 10. UA shows 2+ protein, 1+ ketones, trace blood, 3+ bilirubin, 7 WBC, 14 hyaline casts, moderate mucus 08/05/24: Patient seen and examined at bedside today. BP today is 158/93 and pulse rate 89 bpm. Labs today show WBC 3.6, hemoglobin 13.7, marked macrocytosis, sodium 133, potassium 3.5, magnesium 1.6, calcium 7.2, total bilirubin 15, AST 241, ALT 66, ALP 124, ammonia 58, lipase 318. Abdomen ultrasound shows no evidence for acute cholecystitis with positive sonographic Gutierrez sign, biliary sludge and thickened gallbladder pendleton with pericholecystic fluid. 08/06/24: Patient evaluated today. BP today is 147/102, and pulse rate is 103 bpm. Labs today show magnesium 1.8. Last CIWA score is 0. 08/07/24: Patient examined at bedside. Vital signs are stable. Labs today show INR 1.6, PT 16.9, K 3.2, total bilirubin 17.8, AST 138, ALT 53, Ammonia 56, albumin 2.9. 08/08/24: Patient evaluated at bedside. BP today is 150/88, pulse rate 110. Labs today show creatinine 0.57, potassium 3.7, total bilirubin 18.4, AST 129, ALT 49, ALP 127, albumin 2.9. Respiratory panel is negative. Patient has Midline IV access. Patient denies any abdominal pain. He notes an improvement in his rash on the lower extremities. Patient seen at bedside today and is feeling good and excited about discharge. Patient will be discharged today and is given a script for Clotrimazole cream, Lactulose(titrate to 2-3 BM a day), Multivitamin, Robitussin DM, Thiamine, Folic acid, Amlodipine. Patient is advised to be compliant with medications and complete abstinence from alcohol. Patient is advised to follow-up with PCP in 1-2 days and ap operator in 1 week. Vital signs are reviewed and stable General: nontoxic, no distress, appears at stated age Derm: warm, dry, intact Head: atraumatic, normocephalic, symmetric Eyes: jaundiced, EOMI Mouth: no lip lesion, mucus membranes moist Cardiovascular: S1 S2 reg, no murmur Lungs: CTA bilateral, no rhonchi, no rales, no accessory muscle use Abdominal: soft, non tender to palpation Extremities: rash on the right lower extremity; well demarcated, reddened borders with clear center in the popliteal fossa; excoriation on right lower leg; No pedal edema Neuro: Alert, Oriented, Gross neurological examination did not reveal any focal deficits. Psych: well appearing, appropriate affect A total of 30 minutes of time were spent preparing this complex discharge summary. Patient was discharged on 08/08/24 at 1145. Attestation: I have personally seen and examined the patient with Resident, reviewed the documentation and participated and agree with the assessment and plan as written. Lasha Norton MD Patient Condition at Discharge: Stable Plan - Discharge Summary New Discharge Prescriptions: New Lactulose [Cephulac] 30 gm PO TID 14 Days #1890 ml Multivitamins, Thera [Multivitamin (formulary)] 1 each PO DAILY 14 Days #14 tab guaiFENesin-DM 100-10MG/5ML [Robitussin DM] 10 ml PO Q6HR PRN 14 Days #560 ml PRN Reason: Cough Thiamine [Vitamin B-1] 100 mg PO DAILY 14 Days #14 tab Folic Acid 1 mg PO DAILY 14 Days #14 tab Clotrimazole Cream [Lotrimin Cream] 1 applic TOPICAL BID 14 Days #1 cream amLODIPine [Norvasc] 10 mg PO DAILY 14 Days #14 tab Discontinued cloNIDine HCL [Catapres] 0.2 mg PO HS Discharge Medication List Clotrimazole Cream [Lotrimin Cream] 1 applic TOPICAL BID 14 Days #1 cream 08/08/24 [Rx] Folic Acid 1 mg PO DAILY 14 Days #14 tab 08/08/24 [Rx] Lactulose [Cephulac] 30 gm PO TID 14 Days #1890 ml 08/08/24 [Rx] Multivitamins, Thera [Multivitamin (formulary)] 1 each PO DAILY 14 Days #14 tab 08/08/24 [Rx] Thiamine [Vitamin B-1] 100 mg PO DAILY 14 Days #14 tab 08/08/24 [Rx] amLODIPine [Norvasc] 10 mg PO DAILY 14 Days #14 tab 08/08/24 [Rx] guaiFENesin-DM 100-10MG/5ML [Robitussin DM] 10 ml PO Q6HR PRN 14 Days #560 ml 08/08/24 [Rx] Follow up Appointment(s)/Referral(s): Colette Veras, NPC [REFERRING] - 1 Week (alcohol hepatitis follow up Gastroenterology/liver specialist in [place] at [facility] [phone] call to set up appointment) [facility] [NON-STAFF] - 1-2 Days None,Stated [Primary Care Provider] - 1-2 days Patient Instructions/Handouts: Cirrhosis (DC), Hypokalemia (DC), Hypomagnesemia (DC) Discharge Disposition: HOME SELF-CARE
[2024-08-08 13:50] VITALS: BP 143/85; PULSE 117; RESP 21; TEMP 99.3
--- NOTE | 2024-08-08 14:33 | P.PN ---
Subjective Progress Note Date: 08/08/24 Principal diagnosis: Reason for follow-up the right lower extremity rash Patient is a 44-year-old male with a past medical history of again for hypertension depression alcoholism, presenting hospital for evaluation of abdominal pain which is mostly in the right upper quadrant area also noted to have rash to right lower extremity concern for possible fungal dermatitis prompting this consultation. On today's evaluation that is 08/08/2024, the patient continues to be afebrile, the patient is on room air and breathing comfortably, the Pt denies having any chest pain or cough, the patient denies having any abdominal pain no vomiting or any diarrhea. Patient did have creatinine 0.57 influenza RSV COVID testing is negative Objective - Vital Signs Vital signs: Vital Signs Temp 98.8 F 08/08/24 07:31 Pulse 110 H 08/08/24 07:31 Resp 19 08/08/24 07:31 BP 150/88 08/08/24 07:31 Pulse Ox 93 L 08/08/24 07:31 FiO2 Intake & Output 08/07/24 08/08/24 08/08/24 18:59 06:59 18:59 Other: Voiding Method Bedside Commode Bedside Commode # Voids 3 2 # Bowel Movements 1 - Exam GENERAL DESCRIPTION: Middle-age male lying in bed in no distress RESPIRATORY SYSTEM: Unlabored breathing , decreased breath sounds at bases HEART: S1 S2 regular rate and rhythm , ABDOMEN: Soft distention but no significant tenderness EXTREMITIES: Right lower extremity right slightly decreased intensity - Labs CBC & Chem 7: 08/05/24 04:03 08/08/24 05:21 Labs: Abnormal Lab Results - Last 24 Hours (Table) 08/08/24 Range/Units 05:21 BUN 4 L (9-20) mg/dL Creatinine 0.57 L (0.66-1.25) mg/dL Calcium 7.8 L (8.4-10.2) mg/dL Total Bilirubin 18.4 H* (0.2-1.3) mg/dL AST 129 H (17-59) U/L Alkaline Phosphatase 127 H (38-126) U/L Albumin 2.9 L (3.5-5.0) g/dL Assessment and Plan (1) Rash Status: Acute Code(s): R21 - RASH AND OTHER NONSPECIFIC SKIN ERUPTION SNOMED Code(s): 353803643 (2) Abnormal ultrasound of abdomen Status: Acute Code(s): R93.5 - ABN FINDINGS ON DX IMAGING OF ABD REGIONS, INC RETROPERITON SNOMED Code(s): 89750064422876917 Plan: 1patient with right lower extremity rash question of possible fungal dermatitis as the patient reported previous improvement with antifungal cream clinically not behaving as bacterial cellulitis, and this patient with no fever or elevated white count 2-patient to continue with Lotrimin cream in view of some clinical improvement x 7 days on discharge 3patient did have abnormal ultrasound raising possibility of possible cholecystitis however general surgery has seen the patient mentioning no evidence of cholecystitis patient did have influenza RSV and COVID testing that was negative no need for antibiotic on discharge discussed with the resident physician Dictation was produced using [employer] dictation software. please excuse any grammatical, word or spelling errors. Time with Patient: Less than 30
== END 2024-08-08 14:01 | disposition home or self-care (01) | DRG 280 ==
LOC: EC 17:36 → 4SSUR 21:56
PROVIDERS: ADMIT Hospitalist; ATTEND Hospitalist
PROC: 05HF33Z Insertion of Infusion Device into Left Cephalic Vein, Percutaneous Approach (ICD-10-PCS; principal; 2024-08-07 09:55)
DX: K70.10 Alcoholic hepatitis without ascites (principal); K74.60 Unspecified cirrhosis of liver; F10.239 Alcohol dependence with withdrawal, unspecified; F32.A Depression, unspecified; K76.0 Fatty (change of) liver, not elsewhere classified; E87.20 Acidosis, unspecified; I10 Essential (primary) hypertension; K76.82 Hepatic encephalopathy; E83.42 Hypomagnesemia; E80.6 Other disorders of bilirubin metabolism; R79.1 Abnormal coagulation profile; D75.89 Other specified diseases of blood and blood-forming organs; D69.59 Other secondary thrombocytopenia; B36.9 Superficial mycosis, unspecified; B35.9 Dermatophytosis, unspecified; E87.6 Hypokalemia; Z79.899 Other long term (current) drug therapy; Z11.52 Encounter for screening for COVID-19
CPT/HCPCS: 36410; 36415; 71275; 74177; 76705; 76937; 80053; 80320; 81001; 82140; 83605; 83690; 83735; 83880; 84100; 84132; 84484; 85025; 85027; 85379; 85610; 85730; 87636; 93005; 96361; 96365; 96366; 96375; 96376; 99285

== ENCOUNTER → 2024-08-28 | Outpatient (CLI) | payer OTHER ==
[2024-08-28 19:05] LABS: HCT 34.9 % (39.6-50.0); HGB 11.7 g/dL (13.0-17.0); MCH 36.6 pg (27.0-32.0); MCHC 33.5 g/dL (32.0-37.0); MCV 109.1 FL (80.0-97.0); NRBC Per 100 WBC 0 X 10*3/uL (0.00-0.01); Platelet Count 238 X 10*3/uL (140-440); RDW 14.6 % (11.5-14.5); WBC 9.22 X 10*3/uL (4.50-10.00)
[2024-08-28 19:11] LABS: INR 1.1 sec (0.93-1.11); Prothrombin Time 12.5 sec (9.9-11.9)
[2024-08-28 19:27] LABS: ALT 104 U/L (10-49); AST 138 U/L (14-35); Albumin 3.2 g/dL (3.8-4.9); Alkaline Phosphatase 99 U/L (41-126); BUN/Creat Ratio 20.83 Ratio (12.00-20.00); Blood Urea Nitrogen 12.5 mg/dL (9.0-27.0); Calcium 8.6 mg/dL (8.7-10.3); Chloride 109 mmol/L (96-109); Glucose 110 mg/dL (70-110); Potassium 4.1 mmol/L (3.5-5.5); Sodium 139 mmol/L (135-145); Total Bilirubin 6.8 mg/dL (0.3-1.2); Total Protein 7.2 g/dL (6.2-8.2)
[2024-08-28 20:06] LABS: Basophils # (A) 0.13 X 10*3/uL (0.00-0.10); Basophils % (A) 1.4 %; Eosinophils # (A) 0.81 X 10*3/uL (0.04-0.35); Eosinophils % (A) 8.8 %; Lymphocytes # (A) 1.38 X 10*3/uL (0.90-5.00); Macrocytosis (M) 2+ (None Seen); Monocytes # (A) 0.71 X 10*3/uL (0.20-1.00); Monocytes % (A) 7.7 %; Neutrophils # (A) 6.14 X 10*3/uL (1.80-7.70); Neutrophils % (A) 66.6 %
== END | disposition home or self-care (01) ==
LOC: LABWHC1 14:54
PROVIDERS: ATTEND Internal Medicine Gastroenterology
DX: K70.10 Alcoholic hepatitis without ascites (principal)
CPT/HCPCS: 36415; 80053; 85025; 85610

== ENCOUNTER → 2024-09-08 | Outpatient (CLI) | payer OTHER ==
[2024-09-08 16:43] LABS: Eosinophils # (A) 0.17 10*3/uL (0.04-0.35); Eosinophils % (A) 1.7 %; HCT 41.6 % (39.6-50.0); HGB 14.8 g/dL (13.0-17.0); Lymphocytes # (A) 0.99 10*3/uL (0.90-5.00); Lymphocytes % (A) 9.8 %; MCHC 35.6 g/dL (32.0-37.0); MCV 101.2 fL (80.0-97.0); Mean Platelet Volume 10.8 fL (9.5-12.2); Monocytes # (A) 0.47 10*3/uL (0.20-1.00); Monocytes % (A) 4.7 %; Neutrophils # (A) 8.29 10*3/uL (1.80-7.70); Neutrophils % (A) 82.4 %; Platelet Count 262 10*3/uL (140-440); RBC 4.11 10*6/uL (4.40-5.60); RDW 13.2 % (11.5-14.5); WBC 10.06 10*3/uL (4.50-10.00)
[2024-09-08 19:15] LABS: INR 1.17 sec (0.93-1.11)
[2024-09-08 19:38] LABS: ALT 132 U/L (10-49); AST 207 U/L (14-35); Albumin 3.6 g/dL (3.8-4.9); Albumin/Globulin Ratio 0.78 Ratio (1.60-3.17); Alkaline Phosphatase 123 U/L (41-126); Calcium 9.3 mg/dL (8.7-10.3); Carbon Dioxide 22.1 mmol/L (21.6-31.8); Chloride 97 mmol/L (96-109); Globulin 4.6 g/dL (1.6-3.3); Glucose 98 mg/dL (70-110); Potassium 4.2 mmol/L (3.5-5.5); Sodium 133 mmol/L (135-145); Total Bilirubin 5.1 mg/dL (0.3-1.2); Total Protein 8.2 g/dL (6.2-8.2)
== END | disposition home or self-care (01) ==
LOC: LABWHC1 14:53
PROVIDERS: ATTEND Internal Medicine Gastroenterology
DX: K70.10 Alcoholic hepatitis without ascites (principal)
CPT/HCPCS: 36415; 80053; 85025; 85610

== ENCOUNTER → 2024-10-01 | Outpatient (CLI) | payer OTHER ==
[2024-10-01 15:39] LABS: HCT 43.5 % (39.6-50.0); HGB 14.7 g/dL (13.0-17.0); MCH 34.5 pg (27.0-32.0); MCHC 33.8 g/dL (32.0-37.0); MCV 102.1 FL (80.0-97.0); Mean Platelet Volume 11.4 FL (9.5-12.2); NRBC Per 100 WBC 0 X 10*3/uL (0.00-0.01); Platelet Count 224 X 10*3/uL (140-440); RBC 4.26 X 10*6/uL (4.40-5.60); RDW 12.2 % (11.5-14.5); WBC 7.42 X 10*3/uL (4.50-10.00)
[2024-10-01 15:40] LABS: Basophils # (A) 0.12 X 10*3/uL (0.00-0.10); Basophils % (A) 1.6 %; Eosinophils # (A) 0.48 X 10*3/uL (0.04-0.35); Eosinophils % (A) 6.5 %; Lymphocytes # (A) 1.74 X 10*3/uL (0.90-5.00); Lymphocytes % (A) 23.5 %; Monocytes # (A) 0.77 X 10*3/uL (0.20-1.00); Monocytes % (A) 10.4 %; Neutrophils % (A) 57.9 %
[2024-10-01 15:50] LABS: ALT 34 U/L (10-49); AST 42 U/L (14-35); Albumin 3.8 g/dL (3.8-4.9); Albumin/Globulin Ratio 0.97 Ratio (1.60-3.17); Alkaline Phosphatase 62 U/L (41-126); BUN/Creat Ratio 15.33 Ratio (12.00-20.00); Blood Urea Nitrogen 13.8 mg/dL (9.0-27.0); Carbon Dioxide 19.2 mmol/L (21.6-31.8); Chloride 105 mmol/L (96-109); Globulin 3.9 g/dL (1.6-3.3); Glucose 109 mg/dL (70-110); Potassium 4.7 mmol/L (3.5-5.5); Sodium 136 mmol/L (135-145); Total Bilirubin 0.9 mg/dL (0.3-1.2); Total Protein 7.7 g/dL (6.2-8.2)
== END | disposition home or self-care (01) ==
LOC: LABWHC1 10:12
PROVIDERS: ATTEND Internal Medicine Gastroenterology
DX: K70.10 Alcoholic hepatitis without ascites (principal)
CPT/HCPCS: 36415; 80053; 85025